=== PATIENT | female | born 1930 | race Caucasian/White ===

== ENCOUNTER 2018-12-09 19:09 | Emergency (ER) | payer MEDICARE ==
[2018-12-09] MEDS ORDERED: SODIUM CHLORIDE 0.9% 1,000 ML IV STA (19:57)
[2018-12-09] MEDS ORDERED: ACETAMINOPHEN TAB 325 MG TAB PO STA (20:02)
--- NOTE | 2018-12-09 20:06 | ED ---
General Adult HPI - General Source: family, RN notes reviewed Mode of arrival: ambulatory Limitations: no limitations <Sarthak Ying - Last Filed: 12/13/18 10:28> <Galdino Marte - Last Filed: 12/18/18 06:58> - General Chief complaint: Weakness Stated complaint: Weakness/fell Time Seen by Provider: 12/09/18 19:25 - History of Present Illness Initial comments: This is an 88-year-old female who presents to the emergency department complaining of generalized weakness. Patient herself does not complain of this but family has noted that she is unable to get up and around and today she slipped off the toilet and could not get up. According to family she did not herself according to the patient she did not herself. Patient denies any pain. Patient denies any headache patient denies numbness weakness per patient denies any chest pain difficulty breathing shortest breath per patient denies any abdominal pain patient denies nausea vomiting diarrhea. Patient denies any dysuria hematuria urinary frequency. Patient has no complaint whatsoever however family insists that she is weaker and is having difficulty even getting off the couch. Family also has noted lately she is not eating or drinking normally (Sarthak Ying) - Related Data Home Medications Medication Instructions Recorded Confirmed ALPRAZolam [Xanax] 0.25 mg PO BID 12/09/18 12/11/18 Donepezil [Aricept] 10 mg PO HS 12/09/18 12/11/18 Omeprazole 20 mg PO DAILY 12/09/18 12/11/18 amLODIPine [Norvasc] 5 mg PO DAILY 12/09/18 12/11/18 Levofloxacin [Levaquin] 500 mg PO DAILY 12/11/18 12/11/18 Previous Rx's Medication Instructions Recorded Levofloxacin [Levaquin] 500 mg PO DAILY 3 Days #3 tab 12/15/18 Acetaminophen Tab [Tylenol] 650 mg PO Q6HR PRN tab 12/17/18 Pantoprazole [Protonix] 40 mg PO AC-[id number] #14 tablet. 12/17/18 Allergies Allergy/AdvReac Type Severity Reaction Status Date / Time Sulfa (Sulfonamide Allergy Unknown Verified 12/11/18 11:03 Antibiotics) Review of Systems ROS Other: All systems not noted in ROS Statement are negative. <Fabio Yingophe - Last Filed: 12/13/18 10:28> ROS Other: All systems not noted in ROS Statement are negative. <RosannaGaldino - Last Filed: 12/18/18 06:58> ROS Statement: Those systems with pertinent positive or pertinent negative responses have been documented in the HPI. Past Medical History Past Medical History: GERD/Reflux, Hypertension History of Any Multi-Drug Resistant Organisms: None Reported Additional Past Surgical History / Comment(s): Abdominal sx Past Psychological History: No Psychological Hx Reported Smoking Status: Never smoker Past Alcohol Use History: None Reported Past Drug Use History: None Reported <YingSarthak - Last Filed: 12/13/18 10:28> General Exam Limitations: no limitations <YingBobbye - Last Filed: 12/13/18 10:28> <Galdino Marte - Last Filed: 12/18/18 06:58> - General Exam Comments Initial Comments: GENERAL: Patient is well-developed and well-nourished. Patient is nontoxic and well- hydrated and is in no acute distress. ENT: Neck is soft and supple. No significant lymphadenopathy is noted. Oropharynx is clear. Moist mucous membranes. Neck has full range of motion without eliciting any pain. EYES: The sclera were anicteric and conjunctiva were pink and moist. Extraocular movements were intact and pupils were equal round and reactive to light. Eyelids were unremarkable. PULMONARY: Unlabored respirations. Good breath sounds bilaterally. CARDIOVASCULAR: There is a regular rate and rhythm without any murmurs gallops or rubs. ABDOMEN: Soft and nontender with normal bowel sounds. SKIN: Skin is clear with no lesions or rashes and otherwise unremarkable. NEUROLOGIC: Patient is alert and oriented 2. Cranial nerves II through XII are grossly intact. Motor and sensory are also intact. Normal speech, volume and content. Symmetrical smile. MUSCULOSKELETAL: Normal extremities with adequate strength and full range of motion. LYMPHATICS: No significant lymphadenopathy is noted PSYCHIATRIC: Normal psychiatric evaluation. (Sarthak Ying) Vital Signs 12/09/18 12/09/18 12/09/18 19:24 20:30 21:00 Temperature 100.3 F H 98.6 F Pulse Rate 105 H 63 74 Respiratory 20 16 22 Rate Blood Pressure 130/71 122/47 111/64 O2 Sat by Pulse 92 L 93 L 96 Oximetry 12/09/18 21:10 Temperature 98.6 F Pulse Rate Respiratory Rate Blood Pressure O2 Sat by Pulse 96 Oximetry Medical Decision Making - Lab Data Result diagrams: 12/09/18 20:15 12/09/18 20:15 <Sarthak Ying - Last Filed: 12/13/18 10:28> - Lab Data Result diagrams: 12/09/18 20:15 12/09/18 20:15 <Galdino Marte - Last Filed: 12/18/18 06:58> - Medical Decision Making EKG shows sinus rhythm with occasional PVC at 74 bpm [place] interval is 132 QRS is 80 QT interval 370 QTC is 410. EKG shows no ST segment elevation or depression. Dr. Cuenca will be taking care of this patient starting at 9 PM (Sarthak Ying) Receive this patient has a sign out, pending the return of her lab studies. She does have urinary tract infection. I discussed with the patient and family the results. I then let them discuss things as family was pressure in patient stay but patient stated she wanted to try course of outpatient antibiotics. After discussion, patient still feels she wants try outpatient treatment. Discussed appropriate follow-up and return parameters. (Galdino Marte) - Lab Data Lab Results 12/09/18 12/09/18 12/09/18 Range/Units 20:15 20:15 20:15 WBC 12.3 H (3.8-10.6) k/uL RBC 4.45 (3.80-5.40) m/uL Hgb 13.4 (11.4-16.0) gm/dL Hct 40.7 (34.0-46.0) % MCV 91.4 (80.0-100.0) fL MCH 30.2 (25.0-35.0) pg MCHC 33.0 (31.0-37.0) g/dL RDW 13.1 (11.5-15.5) % Plt Count 272 (150-450) k/uL Neutrophils % 86 % Lymphocytes % 7 % Monocytes % 5 % Eosinophils % 1 % Basophils % 0 % Neutrophils # 10.5 H (1.3-7.7) k/uL Lymphocytes # 0.8 L (1.0-4.8) k/uL Monocytes # 0.6 (0-1.0) k/uL Eosinophils # 0.1 (0-0.7) k/uL Basophils # 0.0 (0-0.2) k/uL PT (9.0-12.0) sec INR (<1.2) APTT (22.0-30.0) sec Sodium 137 (137-145) mmol/L Potassium 4.4 (3.5-5.1) mmol/L Chloride 104 (98-107) mmol/L Carbon Dioxide 23 (22-30) mmol/L Anion Gap 10 mmol/L BUN 34 H (7-17) mg/dL Creatinine 1.50 H (0.52-1.04) mg/dL Est GFR (CKD-EPI)AfAm 36 (>60 ml/min/1.73 sqM) Est GFR (CKD-EPI)NonAf 31 (>60 ml/min/1.73 sqM) Glucose 136 H (74-99) mg/dL Plasma Lactic Acid Martin (0.7-2.0) mmol/L Calcium 9.0 (8.4-10.2) mg/dL Magnesium 2.2 (1.6-2.3) mg/dL Total Bilirubin 0.6 (0.2-1.3) mg/dL AST 22 (14-36) U/L ALT 17 (9-52) U/L Alkaline Phosphatase 65 (38-126) U/L Total Creatine Kinase 54 (30-135) U/L CK-MB (CK-2) 0.8 (0.0-2.4) ng/mL CK-MB (CK-2) Rel Index 1.5 Troponin I 0.030 (0.000-0.034) ng/mL Total Protein 7.7 (6.3-8.2) g/dL Albumin 3.8 (3.5-5.0) g/dL Urine Color Urine Appearance (Clear) Urine pH (5.0-8.0) Ur Specific [place] (1.001-1.035) Urine Protein (Negative) Urine Glucose (UA) (Negative) Urine Ketones (Negative) Urine Blood (Negative) Urine Nitrite (Negative) Urine Bilirubin (Negative) Urine Urobilinogen (<2.0) mg/dL Ur Leukocyte Esterase (Negative) Urine RBC (0-5) /hpf Urine WBC (0-5) /hpf Urine WBC Clumps (None) /hpf Ur Squamous Epith Cells (0-4) /hpf Amorphous Sediment (None) /hpf Urine Bacteria (None) /hpf Urine Mucus (None) /hpf 12/09/18 12/09/18 12/09/18 Range/Units 20:15 20:15 22:57 WBC (3.8-10.6) k/uL RBC (3.80-5.40) m/uL Hgb (11.4-16.0) gm/dL Hct (34.0-46.0) % MCV (80.0-100.0) fL MCH (25.0-35.0) pg MCHC (31.0-37.0) g/dL RDW (11.5-15.5) % Plt Count (150-450) k/uL Neutrophils % % Lymphocytes % % Monocytes % % Eosinophils % % Basophils % % Neutrophils # (1.3-7.7) k/uL Lymphocytes # (1.0-4.8) k/uL Monocytes # (0-1.0) k/uL Eosinophils # (0-0.7) k/uL Basophils # (0-0.2) k/uL PT 10.0 (9.0-12.0) sec INR 0.9 (<1.2) APTT 24.9 (22.0-30.0) sec Sodium (137-145) mmol/L Potassium (3.5-5.1) mmol/L Chloride (98-107) mmol/L Carbon Dioxide (22-30) mmol/L Anion Gap mmol/L BUN (7-17) mg/dL Creatinine (0.52-1.04) mg/dL Est GFR (CKD-EPI)AfAm (>60 ml/min/1.73 sqM) Est GFR (CKD-EPI)NonAf (>60 ml/min/1.73 sqM) Glucose (74-99) mg/dL Plasma Lactic Acid Martin 1.2 (0.7-2.0) mmol/L Calcium (8.4-10.2) mg/dL Magnesium (1.6-2.3) mg/dL Total Bilirubin (0.2-1.3) mg/dL AST (14-36) U/L ALT (9-52) U/L Alkaline Phosphatase (38-126) U/L Total Creatine Kinase (30-135) U/L CK-MB (CK-2) (0.0-2.4) ng/mL CK-MB (CK-2) Rel Index Troponin I (0.000-0.034) ng/mL Total Protein (6.3-8.2) g/dL Albumin (3.5-5.0) g/dL Urine Color Yellow Urine Appearance Turbid H (Clear) Urine pH 6.0 (5.0-8.0) Ur Specific [place] 1.015 (1.001-1.035) Urine Protein 2+ H (Negative) Urine Glucose (UA) Negative (Negative) Urine Ketones 1+ H (Negative) Urine Blood Small H (Negative) Urine Nitrite Negative (Negative) Urine Bilirubin Negative (Negative) Urine Urobilinogen 2.0 (<2.0) mg/dL Ur Leukocyte Esterase Large H (Negative) Urine RBC 15 H (0-5) /hpf Urine WBC >182 H (0-5) /hpf Urine WBC Clumps Few H (None) /hpf Ur Squamous Epith Cells 4 (0-4) /hpf Amorphous Sediment Occasional H (None) /hpf Urine Bacteria Many H (None) /hpf Urine Mucus Occasional H (None) /hpf Disposition <Sarthak Ying - Last Filed: 12/13/18 10:28> Is patient prescribed a controlled substance at d/c from ED?: No <Galdino Marte - Last Filed: 12/18/18 06:58> Clinical Impression: Urinary tract infection Disposition: HOME SELF-CARE Condition: Fair Referrals: Jose Lynch MD [Primary Care Provider] - 1-2 days
[2018-12-09 20:30] VITALS: TEMP 98.6
[2018-12-09 20:52] LABS: Basophils % (A) 0 %; Eosinophils # (A) 0.1 k/uL (0-0.7); Eosinophils % (A) 1 %; HCT 40.7 % (34.0-46.0); HGB 13.4 gm/dL (11.4-16.0); Lymphocytes # (A) 0.8 k/uL (1.0-4.8); Lymphocytes % (A) 7 %; MCH 30.2 pg (25.0-35.0); MCV 91.4 fL (80.0-100.0); Mean Platelet Volume 7.6; Monocytes # (A) 0.6 k/uL (0-1.0); Monocytes % (A) 5 %; Neutrophils # (A) 10.5 k/uL (1.3-7.7); Neutrophils % (A) 86 %; Platelet Count 272 k/uL (150-450); RBC 4.45 m/uL (3.80-5.40); RDW 13.1 % (11.5-15.5); WBC 12.3 k/uL (3.8-10.6)
--- NOTE | 2018-12-09 20:55 | XR ---
EXAMINATION: XR chest 2V DATE AND TIME: 12/09/2018 8:49 PM CLINICAL INDICATION: PHH; Weakness TECHNIQUE: Departmental protocol COMPARISON: None FINDINGS: The lungs appear to be clear. The pleural spaces are negative. The cardiac silhouette is mildly enlarged. The skeletal structures and soft tissues are negative for acute findings. IMPRESSION: NO ACUTE PROCESS.
[2018-12-09 20:59] LABS: INR 0.9 (<1.2); Partial Thromboplastin Time 24.9 sec (22.0-30.0)
[2018-12-09 21:05] LABS: Albumin 3.8 g/dL (3.5-5.0); Magnesium 2.2 mg/dL (1.6-2.3); Potassium 4.4 mmol/L (3.5-5.1); Total Bilirubin 0.6 mg/dL (0.2-1.3); Total Protein 7.7 g/dL (6.3-8.2)
[2018-12-09 21:12] VITALS: BP 111/64; PULSE 74; RESP 22
[2018-12-09 21:18] LABS: Creatine Kinase MB 0.8 ng/mL (0.0-2.4); Troponin I 0.03 ng/mL (0.000-0.034)
[2018-12-09 23:12] LABS: Amorphous Sediment,Urine Occasional /hpf; Appearance,Urine Turbid (Clear); Bacteria,Urine Many /hpf; Bilirubin,Urine Negative (Negative); Blood,Urine Small (Negative); Color,Urine Yellow; Glucose,Urine (UA) Negative (Negative); Ketones,Urine 1+ (Negative); Leukocyte Esterase,Urine Large (Negative); Mucus,Urine Occasional /hpf; Nitrite,Urine Negative (Negative); Protein,Urine 2+ (Negative); RBC,Urine 15 /hpf (0-5); Specific Gravity,Urine 1.015 (1.001-1.035); Squamous Epithelial Cell,Urine 4 /hpf (0-4); WBC,Urine >182 /hpf (0-5)
[2018-12-09] MEDS ORDERED: LEVOFLOXACIN 750 MG TAB ONE (23:55)
== END 2018-12-10 01:40 | disposition home or self-care (01) ==
LOC: EC 19:09
DX: N39.0 Urinary tract infection, site not specified (principal); K21.9 Gastro-esophageal reflux disease without esophagitis; I10 Essential (primary) hypertension; Z79.899 Other long term (current) drug therapy; Z88.2 Allergy status to sulfonamides
CPT/HCPCS: 36415; 71046; 80053; 81001; 82550; 82553; 83605; 83735; 84484; 85025; 85610; 85730; 87040; 87077; 87186; 93005; 96360; 99285

== ENCOUNTER 2018-12-11 10:45 | Inpatient (IN) | payer MEDICARE ==
--- NOTE | 2018-12-11 11:04 | ED ---
General Adult HPI - General Chief complaint: Recheck/Abnormal Lab/Rx Stated complaint: sent by request Time Seen by Provider: 12/11/18 10:51 Source: patient, RN notes reviewed, old records reviewed Mode of arrival: wheelchair Limitations: no limitations - History of Present Illness Initial comments: this Patient is a pleasant 88-year-old female with a history of dementia presents emergency department today with positive blood culture. Patient was in the emergency department 2 days ago for generalized weakness and frequent falls. Labwork was obtained at that time and she was determined to have a urinary tract infection. She has been on oral antibiotics at that time. Patient was called by her primary care physician and informed of the positive blood culture. Patient blood culture did grow gram-negative rods. She was sent in for IV antibiotics. She reports that she's been doing otherwise well. Family reports that she's had increasing shortness of breath with exertion as well as a poor appetite. Patient has had no further falls since her first emergency visit. - Related Data Home Medications Medication Instructions Recorded Confirmed ALPRAZolam [Xanax] 0.25 mg PO BID 12/09/18 12/11/18 Donepezil [Aricept] 10 mg PO HS 12/09/18 12/11/18 Losartan Potassium 50 mg PO DAILY 12/09/18 12/11/18 Omeprazole 20 mg PO DAILY 12/09/18 12/11/18 amLODIPine [Norvasc] 5 mg PO DAILY 12/09/18 12/11/18 Levofloxacin [Levaquin] 500 mg PO DAILY 12/11/18 12/11/18 Allergies Allergy/AdvReac Type Severity Reaction Status Date / Time Sulfa (Sulfonamide Allergy Unknown Verified 12/11/18 11:03 Antibiotics) Review of Systems ROS Statement: Those systems with pertinent positive or pertinent negative responses have been documented in the HPI. ROS Other: All systems not noted in ROS Statement are negative. Past Medical History Past Medical History: Dementia, GERD/Reflux, Hypertension History of Any Multi-Drug Resistant Organisms: None Reported Additional Past Surgical History / Comment(s): Abdominal sx Past Psychological History: No Psychological Hx Reported Smoking Status: Never smoker Past Alcohol Use History: None Reported Past Drug Use History: None Reported General Exam - General Exam Comments Initial Comments: this is a pleasantly demented 88-year-old female. Patient appears in no acute distress. Limitations: no limitations General appearance: alert, in no apparent distress Head exam: Present: atraumatic, normocephalic, normal inspection Eye exam: Present: normal appearance, PERRL, EOMI. Absent: scleral icterus, conjunctival injection, periorbital swelling ENT exam: Present: normal exam, mucous membranes moist Neck exam: Present: normal inspection. Absent: tenderness, meningismus, lymphadenopathy Respiratory exam: Present: normal lung sounds bilaterally. Absent: respiratory distress, wheezes, rales, rhonchi, stridor Cardiovascular Exam: Present: regular rate, normal rhythm, normal heart sounds. Absent: systolic murmur, diastolic murmur, rubs, gallop, clicks GI/Abdominal exam: Present: soft, normal bowel sounds. Absent: distended, tenderness, guarding, rebound, rigid Extremities exam: Present: normal inspection, full ROM, normal capillary refill. Absent: tenderness, pedal edema, joint swelling, calf tenderness Back exam: Present: normal inspection, other (significant kyphosis ) Neurological exam: Present: alert, oriented X3, CN II-XII intact Psychiatric exam: Present: normal affect, normal mood Skin exam: Present: warm, dry, intact, normal color. Absent: rash Course Vital Signs 12/11/18 10:47 Temperature 97.5 F L Pulse Rate 95 Respiratory 16 Rate Blood Pressure 134/74 O2 Sat by Pulse 97 Oximetry EKG Findings - EKG Comments: EKG Findings:: EKG shows sinus rhythm with PACs with aberrant conduction. Left axis deviation. Minimal voltage Critcher for LVH. May be normal variant. Abnormal EKG noted. Ventricular rate of 74 bpm. TX interval is 144 ms. QT QTc is 414/459 ms. Medical Decision Making - Medical Decision Making Patient is an 88-year-old female who presents returned today with treatment for positive blood culture. She was seen in emergency department 2 days ago. That time had a positive gram-negative fred blood culture. Likely from UTI. She was discharged on by mouth Levaquin. Patient was sent in by her PCP for IV antibiotics due to a positive blood culture. She states she has no actual physical complaints at this time. Her lab work was reviewed today. White blood cell count is improved from her labs 2 days ago. Vital signs are stable. I did start the Patient on IV Levaquin and Vanco. Sensitivity is not completed for the cultures at this time. Patient at this time will be admitted for continued antibiotics consult infectious disease. Dr. Ying discussed case with [facility]. - Lab Data Result diagrams: 12/11/18 11:34 12/11/18 11:34 Lab Results 12/11/18 12/11/18 12/11/18 Range/Units 11:34 11:34 11:34 WBC 6.3 (3.8-10.6) k/uL RBC 4.18 (3.80-5.40) m/uL Hgb 12.9 (11.4-16.0) gm/dL Hct 38.0 (34.0-46.0) % MCV 91.1 (80.0-100.0) fL MCH 30.9 (25.0-35.0) pg MCHC 33.9 (31.0-37.0) g/dL RDW 13.1 (11.5-15.5) % Plt Count 295 (150-450) k/uL Neutrophils % 71 % Lymphocytes % 16 % Monocytes % 7 % Eosinophils % 1 % Basophils % 0 % Neutrophils # 4.5 (1.3-7.7) k/uL Lymphocytes # 1.0 (1.0-4.8) k/uL Monocytes # 0.5 (0-1.0) k/uL Eosinophils # 0.1 (0-0.7) k/uL Basophils # 0.0 (0-0.2) k/uL PT (9.0-12.0) sec INR (<1.2) APTT (22.0-30.0) sec Sodium 139 (137-145) mmol/L Potassium 3.8 (3.5-5.1) mmol/L Chloride 106 (98-107) mmol/L Carbon Dioxide 25 (22-30) mmol/L Anion Gap 8 mmol/L BUN 29 H (7-17) mg/dL Creatinine 0.96 (0.52-1.04) mg/dL Est GFR (CKD-EPI)AfAm 62 (>60 ml/min/1.73 sqM) Est GFR (CKD-EPI)NonAf 53 (>60 ml/min/1.73 sqM) Glucose 102 H (74-99) mg/dL Plasma Lactic Acid Martin 1.4 (0.7-2.0) mmol/L Calcium 8.7 (8.4-10.2) mg/dL Total Bilirubin 0.4 (0.2-1.3) mg/dL AST 36 (14-36) U/L ALT 21 (9-52) U/L Alkaline Phosphatase 64 (38-126) U/L Troponin I (0.000-0.034) ng/mL Total Protein 7.1 (6.3-8.2) g/dL Albumin 3.5 (3.5-5.0) g/dL 12/11/18 12/11/18 Range/Units 11:34 11:34 WBC (3.8-10.6) k/uL RBC (3.80-5.40) m/uL Hgb (11.4-16.0) gm/dL Hct (34.0-46.0) % MCV (80.0-100.0) fL MCH (25.0-35.0) pg MCHC (31.0-37.0) g/dL RDW (11.5-15.5) % Plt Count (150-450) k/uL Neutrophils % % Lymphocytes % % Monocytes % % Eosinophils % % Basophils % % Neutrophils # (1.3-7.7) k/uL Lymphocytes # (1.0-4.8) k/uL Monocytes # (0-1.0) k/uL Eosinophils # (0-0.7) k/uL Basophils # (0-0.2) k/uL PT 10.1 (9.0-12.0) sec INR 0.9 (<1.2) APTT 25.0 (22.0-30.0) sec Sodium (137-145) mmol/L Potassium (3.5-5.1) mmol/L Chloride (98-107) mmol/L Carbon Dioxide (22-30) mmol/L Anion Gap mmol/L BUN (7-17) mg/dL Creatinine (0.52-1.04) mg/dL Est GFR (CKD-EPI)AfAm (>60 ml/min/1.73 sqM) Est GFR (CKD-EPI)NonAf (>60 ml/min/1.73 sqM) Glucose (74-99) mg/dL Plasma Lactic Acid Martin (0.7-2.0) mmol/L Calcium (8.4-10.2) mg/dL Total Bilirubin (0.2-1.3) mg/dL AST (14-36) U/L ALT (9-52) U/L Alkaline Phosphatase (38-126) U/L Troponin I 0.019 (0.000-0.034) ng/mL Total Protein (6.3-8.2) g/dL Albumin (3.5-5.0) g/dL - Radiology Data Radiology results: report reviewed Chest x-ray shows no acute cardio from a process. Kyphosis present. Aorta sounds. Right hemidiaphragm is elevated. Heart size may be accentuated prior dictation. Surgical clips of the left breast. Question will nodular density in the substernal location that is not seen on prior exam. Disposition Clinical Impression: Positive blood culture, History of UTI Disposition: ADMITTED IP TO THIS HOSP Condition: Stable Is patient prescribed a controlled substance at d/c from ED?: No Referrals: Jose Lynch MD [Primary Care Provider] - 1-2 days Time of Disposition: 13:17
[2018-12-11] MEDS ORDERED: VANCOMYCIN IV PER PHARMACY 1 EACH MISC MISCELLANE PRN (11:07)
[2018-12-11] MEDS ORDERED: LEVOFLOXACIN 750MG-D5W PMX 750 MG in DEXTROSE/WATER 1 150ML.BAG IVPB STA (11:07)
[2018-12-11] MEDS ORDERED: VANCOMYCIN 1,000 MG in SODIUM CHLORIDE 0.9% 250 ML IVPB ONE (11:30)
[2018-12-11] MEDS: SODIUM CHLORIDE 0.9% 500 ML 500 ML IV SCH ×2 (11:40→11:41)
[2018-12-11] MEDS: SODIUM CHLORIDE 0.9% 1,000 ML IV SCH ×2 (11:41→21:07)
[2018-12-11 12:07] LABS: Basophils % (A) 0 %; Eosinophils # (A) 0.1 k/uL (0-0.7); Eosinophils % (A) 1 %; HGB 12.9 gm/dL (11.4-16.0); Lymphocytes % (A) 16 %; MCH 30.9 pg (25.0-35.0); MCHC 33.9 g/dL (31.0-37.0); MCV 91.1 fL (80.0-100.0); Mean Platelet Volume 7.5; Monocytes # (A) 0.5 k/uL (0-1.0); Monocytes % (A) 7 %; Neutrophils # (A) 4.5 k/uL (1.3-7.7); Neutrophils % (A) 71 %; Platelet Count 295 k/uL (150-450); RBC 4.18 m/uL (3.80-5.40); RDW 13.1 % (11.5-15.5); WBC 6.3 k/uL (3.8-10.6)
--- NOTE | 2018-12-11 12:17 | XR ---
EXAMINATION TYPE: XR chest 2V DATE OF EXAM: 12/11/2018 COMPARISON: Prior chest x-ray 12/09/2018 HISTORY: Cough, flu symptoms, pain TECHNIQUE: Frontal and lateral views of the chest are obtained. FINDINGS: Patient is rotated. No evident airspace disease, pneumothorax, or pleural effusion. There is a kyphosis present. Aorta is dense. Right hemidiaphragm is elevated. Heart size may be accentuated by rotation. Surgical clips may be within the left breast. Questionable nodular density in the subst ernal location is not seen on prior exam. There is an underlying kyphosis. IMPRESSION: No acute cardiopulmonary process. Additional findings above. Follow-up as indicated.
[2018-12-11 12:23] LABS: Albumin 3.5 g/dL (3.5-5.0); Calcium 8.7 mg/dL (8.4-10.2); Potassium 3.8 mmol/L (3.5-5.1); Total Bilirubin 0.4 mg/dL (0.2-1.3); Total Protein 7.1 g/dL (6.3-8.2)
[2018-12-11 12:35] LABS: INR 0.9 (<1.2); Prothrombin Time 10.1 sec (9.0-12.0)
[2018-12-11] MEDS ORDERED: IBUPROFEN 400 MG TAB PO PRN (13:18)
[2018-12-11] MEDS ORDERED: NALOXONE 0.4 MG/ML 1 ML VIAL IV PRN (13:18)
[2018-12-11] MEDS ORDERED: ONDANSETRON 4 MG/2 ML VIAL IVP PRN (13:18)
[2018-12-11] MEDS ORDERED: Acetaminophen-Codeine 300-30mg TAB PO PRN (13:18)
[2018-12-11] MEDS ORDERED: oxyCODONE-APAP 5-325MG 1 EACH TAB PO PRN (13:18)
[2018-12-11 14:04] LABS: Appearance,Urine Cloudy (Clear); Bacteria,Urine Rare /hpf; Bilirubin,Urine Negative (Negative); Blood,Urine Trace (Negative); Color,Urine Yellow; Glucose,Urine (UA) Negative (Negative); Ketones,Urine Negative (Negative); Leukocyte Esterase,Urine Large (Negative); Nitrite,Urine Negative (Negative); Protein,Urine Trace (Negative); RBC,Urine 3 /hpf (0-5); Specific Gravity,Urine 1.008 (1.001-1.035); Squamous Epithelial Cell,Urine <1 /hpf (0-4); Urobilinogen,Urine <2.0 mg/dL (<2.0); WBC,Urine 177 /hpf (0-5)
--- NOTE | 2018-12-11 22:24 | P.HPIM ---
History of Present Illness H&P Date: 12/11/18 Chief Complaint: Positive blood cultures Patient is a 88-year-old female with a known history of dementia, GERD, hypertension was called back to the hospital due to positive blood cultures. Patient was in the emergency department 2 days ago for generalized weakness and frequent falls. Labwork was obtained at that time and she was determined to have a urinary tract infection. She has been on oral antibiotics at that time. Patient was called by her primary care physician and informed of the positive blood culture. Patient blood culture did grow gram-negative rods. She was sent in for IV antibiotics. She reports that she's been doing otherwise well. Family reports that she's had increasing shortness of breath with exertion as well as a poor appetite. Patient has had no further falls since her first emergency visit. Blood cultures grew E. coli. Patient was given a dose of Levaquin while in the ER. Patient otherwise denied any complaints of cough or sputum production. No fever no chills. No nausea vomiting or abdominal pain. No diarrhea. Chest x-ray showed no acute cardio pulmonary process. Chronic changes. EKG showed sinus sinus rhythm and PACs. WBC 12.3---6.3 Review of Systems Constitutional: Patient denies any fever or chills . No generalized weakness or weight loss. Abdomen: Patient denied nausea vomiting and diarrhea and abdominal pain. Cardiovascular: Patient denies any chest pain or short of breath no palpitations. Respiratory: patient denied any cough is from production. No shortness of breath Complete review of systems could not be obtained from the patient. Past Medical History Past Medical History: Dementia, GERD/Reflux, Hypertension Additional Past Medical History / Comment(s): falls History of Any Multi-Drug Resistant Organisms: None Reported Additional Past Surgical History / Comment(s): pt poor historian and son that was with her stated that the only sx he know of was abd sx either on bladder or kidney? and lasik eye sx Past Anesthesia/Blood Transfusion Reactions: No Reported Reaction Additional Past Anesthesia/Blood Transfusion Reaction / Comment(s): never had a blood transfusion Smoking Status: Never smoker - Past Family History Father Additional Family Medical History / Comment(s): in his 60's from post op infection Mother Family Medical History: Cancer Additional Family Medical History / Comment(s): colon cancer. " from old age " Medications and Allergies Home Medications Medication Instructions Recorded Confirmed Type ALPRAZolam [Xanax] 0.25 mg PO BID 12/09/18 12/11/18 History Donepezil [Aricept] 10 mg PO HS 12/09/18 12/11/18 History Losartan Potassium 50 mg PO DAILY 12/09/18 12/11/18 History Omeprazole 20 mg PO DAILY 12/09/18 12/11/18 History amLODIPine [Norvasc] 5 mg PO DAILY 12/09/18 12/11/18 History Levofloxacin [Levaquin] 500 mg PO DAILY 12/11/18 12/11/18 History Allergies Allergy/AdvReac Type Severity Reaction Status Date / Time Sulfa (Sulfonamide Allergy Unknown Verified 12/11/18 11:03 Antibiotics) Physical Exam Vitals: Vital Signs Temp Pulse Pulse Resp BP BP Pulse Ox 12/11/18 20:22 97.9 F 78 18 116/63 96 12/11/18 16:29 97.4 F L 79 18 134/64 91 L 12/11/18 15:44 97.8 F 86 18 124/62 95 12/11/18 13:22 97.7 F 82 16 116/61 95 12/11/18 10:47 97.5 F L 95 16 134/74 97 Intake and Output 12/11/18 12/11/18 12/11/18 06:59 14:59 22:59 Other: Voiding Method Toilet # Voids 1 # Bowel Movements 1 Weight 56.699 kg PHYSICAL EXAMINATION: Patient is lying in the bed comfortably, no acute distress, awake alert and oriented.. HEENT: Normocephalic. Neck is supple. Pupils reactive. Nostrils clear. Oral cavity is moist. Ears reveal no drainage. Neck reveals no JVD, carotid bruits, or thyromegaly. CHEST EXAMINATION: Trachea is central. Symmetrical expansion. Lung strickland clear to auscultation and percussion. CARDIAC: Normal S1, S2 with no gallops. No murmurs ABDOMEN: Soft. Bowel sounds normal. No organomegaly. No abdominal bruits. Extremities: reveal no edema. No clubbing or cyanosis Neurologically awake, alert, oriented x2-3 with well-coordinated movements. Able to move all extremities. Patient does have underlying dementia. Skin: No rash or skin lesions. Psychiatric: Coperative. Could not patient is completely. Musculoskeletal: No joint swelling or deformity. Normal range of motion. Results CBC & Chem 7: 12/11/18 11:34 12/11/18 11:34 Labs: Abnormal Lab Results - Last 24 Hours (Table) 12/11/18 12/11/18 Range/Units 11:34 12:45 BUN 29 H (7-17) mg/dL Glucose 102 H (74-99) mg/dL Urine Appearance Cloudy H (Clear) Urine Protein Trace H (Negative) Urine Blood Trace H (Negative) Ur Leukocyte Esterase Large H (Negative) Urine WBC 177 H (0-5) /hpf Urine Bacteria Rare H (None) /hpf Microbiology - Last 24 Hours (Table) 12/11/18 12:45 Urine Culture - Preliminary Urine,Voided Thrombosis Risk Factor Assmnt - Choose All That Apply Any of the Below Risk Factors Present?: Yes Each Factor Represents 1 point: Obesity (BMI >25) Other Risk Factors: Yes Each Risk Factor Represents 3 Points: Age 75 years or older Other congenital or acquired thrombophilia - If yes, enter type in comment: No Thrombosis Risk Factor Assessment Total Risk Factor Score: 4 Thrombosis Risk Factor Assessment Level: Moderate Risk Assessment and Plan Assessment: E. coli sepsis/septicemia. source possibly UTI Generalized weakness Dementia Hypertension DVT prophylaxis Plan: Patient will be continued on antibiotics in the form of ceftriaxone. Patient was given a dose of Levaquin while in the ER. Repeat blood culture and urine culture was ordered. ID was consulted. IV hydration. Further recommendations based on the clinical course. Time with Patient: Greater than 30
[2018-12-12] MEDS: HEPARIN SODIUM,PORCINE 5,000 UNIT/ML 1 ML VIAL SQ SCH ×4 (00:20→23:27)
[2018-12-12] MEDS ORDERED: PANTOPRAZOLE 40 MG/10 ML VIAL IV SCH (09:00)
[2018-12-12] MEDS: SODIUM CHLORIDE 0.9% 1,000 ML IV SCH ×2 (09:09→17:05)
[2018-12-12] MEDS ORDERED: VANCOMYCIN 1,000 MG in SODIUM CHLORIDE 0.9% 250 ML IVPB SCH (12:00)
--- NOTE | 2018-12-12 14:01 | P.CONS ---
History of Present Illness - Reason for Consult Consult date: 12/12/18 Positive blood culture, gram-negative rods - History of Present Illness This is an 88-year-old female patient who presented to the [facility] emergency center on December 09 with complaints of generalized weakness, unable to get up and around and she slipped off the toilet and could not get up. She was having difficulty getting off the couch and family noted that she is not eating or drinking normally. Temperature max 100.3, pulse 105, white count 12.3, BUN 34 and creatinine 1.5. Urinalysis was turbid, leukoesterase large, RBCs 15, WBC is greater than 182, bacteria many. Patient was discharged home on Levaquin and the patient received a call that she had a positive blood culture need to come back in the hospital and be admitted. Patient now has been afebrile, white count 6.3, BUN 29 creatinine 0.96. She received a dose of IV vancomycin was started on ceftriaxone and is status post 1 L of IV fluids. Chest x-ray showed no acute process. Patient was admitted to the [facility] floor. Repeat blood culture is status received. Urine culture was not obtained on December 09 ER visit. Urine culture for this admission is in progress. Patient denies any fever or chills, she states she is eating okay without any problems with her appetite. She denies any diarrhea. Patient states that she has ambulated in the hallway and that her weakness is improved. Patient states that she has had urinary tract infections in the past but not more than 2 in the last year. According to the patient's son, if patient needs IV antibiotics they [facility] or have antibiotics given in the office. Review of Systems All systems: negative Constitutional: Reports weakness, Denies chills, Denies fever Eyes: denies blurred vision, denies pain Ears, nose, mouth and throat: Denies dental pain, Denies dysphagia, Denies headache, Denies mouth pain, Denies sore throat, Denies vertigo Cardiovascular: Denies chest pain, Denies dyspnea on exertion, Denies edema, Denies leg edema, Denies lightheadedness, Denies shortness of breath, Denies syncope Respiratory: Denies cough, Denies cough with sputum, Denies dyspnea, Denies excessive sputum, Denies hemoptysis, Denies home oxygen, Denies wheezing Gastrointestinal: Denies abdominal pain, Denies diarrhea, Denies nausea, Denies vomiting Genitourinary: Reports dysuria (Has resolved), Denies hematuria Musculoskeletal: Denies myalgias Integumentary: Denies pruritus, Denies rash Neurological: Denies numbness, Denies weakness Psychiatric: Denies anxiety, Denies depression Endocrine: Denies fatigue, Denies weight change Past Medical History Past Medical History: Dementia, GERD/Reflux, Hypertension Additional Past Medical History / Comment(s): falls History of Any Multi-Drug Resistant Organisms: None Reported Additional Past Surgical History / Comment(s): pt poor historian and son that was with her stated that the only sx he know of was abd sx either on bladder or kidney? and lasik eye sx Past Anesthesia/Blood Transfusion Reactions: No Reported Reaction Additional Past Anesthesia/Blood Transfusion Reaction / Comm: never had a blood transfusion Smoking Status: Never smoker Additional Past Alcohol Use History / Comment(s): Patient is a lifelong nonsmoker, no marijuana or illicit drug use. No alcohol use. Patient lives at home with her . She has traveled about a year ago to the [place] area. - Past Family History Father Additional Family Medical History / Comment(s): in his 60's from post op infection Mother Family Medical History: Cancer Additional Family Medical History / Comment(s): colon cancer. " from old age " Medications and Allergies Home Medications Medication Instructions Recorded Confirmed Type ALPRAZolam [Xanax] 0.25 mg PO BID 12/09/18 12/11/18 History Donepezil [Aricept] 10 mg PO HS 12/09/18 12/11/18 History Losartan Potassium 50 mg PO DAILY 12/09/18 12/11/18 History Omeprazole 20 mg PO DAILY 12/09/18 12/11/18 History amLODIPine [Norvasc] 5 mg PO DAILY 12/09/18 12/11/18 History Levofloxacin [Levaquin] 500 mg PO DAILY 12/11/18 12/11/18 History Allergies Allergy/AdvReac Type Severity Reaction Status Date / Time Sulfa (Sulfonamide Allergy Unknown Verified 12/11/18 11:03 Antibiotics) Physical Exam Vitals: Vital Signs Temp Pulse Pulse Resp BP BP Pulse Ox 12/12/18 05:00 97.7 F 85 16 147/67 93 L 12/11/18 20:22 97.9 F 78 18 116/63 96 12/11/18 16:29 97.4 F L 79 18 134/64 91 L 12/11/18 15:44 97.8 F 86 18 124/62 95 12/11/18 13:22 97.7 F 82 16 116/61 95 12/11/18 10:47 97.5 F L 95 16 134/74 97 Intake and Output 12/11/18 12/12/18 12/12/18 22:59 06:59 14:59 Intake Total 520 840 Balance 520 840 Intake: Intake, IV Titration 400 600 Amount Sodium [place] 0.9% 1, 400 600 000 ml @ 75 mls/hr IV . [id number] [facility] Rx#:[id number] Oral 120 240 Other: Voiding Method Toilet Toilet Toilet # Voids 3 3 # Bowel Movements 1 Gen: This is an 88-year-old female. She is sitting in bed appears to be comfortable and in no acute distress. Patient is eating her breakfast with no signs of dysphagia. HEENT: Head is atraumatic, normocephalic. Pupils equal, round. Sclerae is anicteric. Conjunctiva pink. Mucous members of the mouth are moist. No thrush noted. No oropharyngeal erythema or edema. NECK: Supple. No JVD. No lymphadenopathy. No thyromegaly. LUNGS: Clear to auscultation. No wheezes or rhonchi. No intercostal retractions. HEART: Regular rate and rhythm. No murmur. ABDOMEN: Soft. Bowel sounds are present. No masses. No tenderness. No suprapubic tenderness. No CVA tenderness bilaterally. EXTREMITIES: No pedal edema. No calf tenderness. Dorsalis pedis is +2 bilaterally NEUROLOGICAL: Patient is awake, alert and oriented x3. Cranial nerves 2 through 12 are grossly intact. Results Results: Laboratory Results WBC 6.3 k/uL (3.8-10.6) 12/11/18 11:34 RBC 4.18 m/uL (3.80-5.40) 12/11/18 11:34 Hgb 12.9 gm/dL (11.4-16.0) 12/11/18 11:34 Hct 38.0 % (34.0-46.0) 12/11/18 11:34 MCV 91.1 fL (80.0-100.0) 12/11/18 11:34 MCH 30.9 pg (25.0-35.0) 12/11/18 11:34 MCHC 33.9 g/dL (31.0-37.0) 12/11/18 11:34 RDW 13.1 % (11.5-15.5) 12/11/18 11:34 Plt Count 295 k/uL (150-450) 12/11/18 11:34 Neutrophils % 71 % 12/11/18 11:34 Lymphocytes % 16 % 12/11/18 11:34 Monocytes % 7 % 12/11/18 11:34 Eosinophils % 1 % 12/11/18 11:34 Basophils % 0 % 12/11/18 11:34 Neutrophils # 4.5 k/uL (1.3-7.7) 12/11/18 11:34 Lymphocytes # 1.0 k/uL (1.0-4.8) 12/11/18 11:34 Monocytes # 0.5 k/uL (0-1.0) 12/11/18 11:34 Eosinophils # 0.1 k/uL (0-0.7) 12/11/18 11:34 Basophils # 0.0 k/uL (0-0.2) 12/11/18 11:34 PT 10.1 sec (9.0-12.0) 12/11/18 11:34 INR 0.9 (<1.2) 12/11/18 11:34 APTT 25.0 sec (22.0-30.0) 12/11/18 11:34 Sodium 139 mmol/L (137-145) 12/11/18 11:34 Potassium 3.8 mmol/L (3.5-5.1) 12/11/18 11:34 [place] 106 mmol/L (98-107) 12/11/18 11:34 Carbon Dioxide 25 mmol/L (22-30) 12/11/18 11:34 Anion Gap 8 mmol/L 12/11/18 11:34 BUN 29 mg/dL (7-17) H 12/11/18 11:34 Creatinine 0.96 mg/dL (0.52-1.04) 12/11/18 11:34 Est GFR (CKD-EPI)AfAm 62 (>60 ml/min/1.73 sqM) 12/11/18 11:34 Est GFR (CKD-EPI)NonAf 53 (>60 ml/min/1.73 sqM) 12/11/18 11:34 Glucose 102 mg/dL (74-99) H 12/11/18 11:34 Plasma Lactic Acid Martin 1.4 mmol/L (0.7-2.0) 12/11/18 11:34 Calcium 8.7 mg/dL (8.4-10.2) 12/11/18 11:34 Total Bilirubin 0.4 mg/dL (0.2-1.3) 12/11/18 11:34 AST 36 U/L (14-36) 12/11/18 11:34 ALT 21 U/L (9-52) 12/11/18 11:34 Alkaline Phosphatase 64 U/L (38-126) 12/11/18 11:34 Troponin I 0.019 ng/mL (0.000-0.034) 12/11/18 11:34 Total Protein 7.1 g/dL (6.3-8.2) 12/11/18 11:34 Albumin 3.5 g/dL (3.5-5.0) 12/11/18 11:34 Urine Color Yellow 12/11/18 12:45 Urine Appearance Cloudy (Clear) H 12/11/18 12:45 Urine pH 6.0 (5.0-8.0) 12/11/18 12:45 Ur Specific [place] 1.008 (1.001-1.035) 12/11/18 12:45 Urine Protein Trace (Negative) H 12/11/18 12:45 Urine Glucose (UA) Negative (Negative) 12/11/18 12:45 Urine Ketones Negative (Negative) 12/11/18 12:45 Urine Blood Trace (Negative) H 12/11/18 12:45 Urine Nitrite Negative (Negative) 12/11/18 12:45 Urine Bilirubin Negative (Negative) 12/11/18 12:45 Urine Urobilinogen <2.0 mg/dL (<2.0) 12/11/18 12:45 Ur Leukocyte Esterase Large (Negative) H 12/11/18 12:45 Urine RBC 3 /hpf (0-5) 12/11/18 12:45 Urine WBC 177 /hpf (0-5) H 12/11/18 12:45 Ur Squamous Epith Cells <1 /hpf (0-4) 12/11/18 12:45 Urine Bacteria Rare /hpf (None) H 12/11/18 12:45 CBC & Chem 7: 12/11/18 11:34 12/11/18 11:34 Labs: Abnormal Lab Results - Last 24 Hours (Table) 12/11/18 12/11/18 Range/Units 11:34 12:45 BUN 29 H (7-17) mg/dL Glucose 102 H (74-99) mg/dL Urine Appearance Cloudy H (Clear) Urine Protein Trace H (Negative) Urine Blood Trace H (Negative) Ur Leukocyte Esterase Large H (Negative) Urine WBC 177 H (0-5) /hpf Urine Bacteria Rare H (None) /hpf Microbiology - Last 24 Hours (Table) 12/11/18 12:45 Urine Culture - Preliminary Urine,Voided Assessment and Plan Plan: This is an 88-year-old female who presents to hospital with gram- negative bacteremia secondary to UTI. Patient is currently on Rocephin. Blood culture from December 09 ER visit is E. coli that is pansensitive. Repeat blood culture and a urine culture has been obtained on this admission. Patient is currently on Rocephin which will be continued. Family is requesting either ECF for IV antibiotics if needed or come into the office daily for antibiotics. Continue supportive care. Further recommendations as patient progresses. The above dictated assessment and findings were discussed with Dr. Leonard. The impression and plan of care have been directed as dictated. Mireya Summers nurse practitioner acting as scribe for Dr. Leonard.
--- NOTE | 2018-12-12 15:05 | US ---
EXAMINATION TYPE: US kidneys/renal and bladder DATE OF EXAM: 12/12/2018 COMPARISON: NONE CLINICAL HISTORY: hydronephrosis renal mass. EXAM MEASUREMENTS: Right Kidney: 10.5 x 3.8 x 4.1 cm Left Kidney: 9.7 x 4.1 x 4.2 cm Right Kidney: 2.0 x 1.2 x 1.7cm hypoechoic area lateral mid pole. This does not demonstrate through t ransmission and requires further evaluation as it is not entirely sonographically compatible with a c yst. Left Kidney: 0.2cm echogenic focus superior pole compatible with a nonobstructing calculus. Bladder: wnl Bilateral Jets seen: right jet not seen There is no evidence for hydronephrosis at this point in time. No nephrolithiasis is seen. No ariana s are identified. The urinary bladder is anechoic. Bilateral ureteral jets are seen. IMPRESSION: 1. No hydronephrosis of either kidney. 2. 2 cm right renal lesion that does not appear compatible with a simple cyst. Further characterizati on with three-phase enhanced CT abdomen is recommended. 3. 0.2 cm nonobstructing left renal calculus.
--- NOTE | 2018-12-12 21:52 | P.PN ---
Subjective Progress Note Date: 12/12/18 Principal diagnosis: Gram-negative bacilli/E. coli bacteremia Patient is a 88-year-old female with a known history of dementia, GERD, hypertension was called back to the hospital due to positive blood cultures. Patient was in the emergency department 2 days ago for generalized weakness and frequent falls. Labwork was obtained at that time and she was determined to have a urinary tract infection. She has been on oral antibiotics at that time. Patient was called by her primary care physician and informed of the positive blood culture. Patient blood culture did grow gram-negative rods. She was sent in for IV antibiotics. She reports that she's been doing otherwise well. Family reports that she's had increasing shortness of breath with exertion as well as a poor appetite. Patient has had no further falls since her first emergency visit. Blood cultures grew E. coli. Patient was given a dose of Levaquin while in the ER. Patient otherwise denied any complaints of cough or sputum production. No fever no chills. No nausea vomiting or abdominal pain. No diarrhea. Chest x-ray showed no acute cardio pulmonary process. Chronic changes. EKG showed sinus sinus rhythm and PACs. WBC 12.3---6.3 12/12/2018 Patient denied any complaints of chest pain or shortness of breath. No fever no chills. Repeat blood cultures have been negative as well as urine cultures. No nausea vomiting or abdominal pain. Otherwise patient is a poor historian due to underlying dementia. No other acute overnight issues. Current medications reviewed Objective - Vital Signs Vital signs: Vital Signs Temp 98.3 F 12/12/18 12:35 Pulse 85 12/12/18 12:35 Resp 16 12/12/18 12:35 BP 154/68 12/12/18 12:35 Pulse Ox 96 12/12/18 12:35 Intake & Output 12/12/18 12/12/18 12/13/18 06:59 18:59 06:59 Intake Total 1360 Balance 1360 Intake: Intake, IV Titration 1000 Amount Sodium [place] 0.9% 1, 1000 000 ml @ 75 mls/hr IV . [id number] [facility] Rx#:[id number] Oral 360 Other: Voiding Method Toilet Toilet # Voids 3 2 # Bowel Movements 1 1 - Exam PHYSICAL EXAMINATION: Patient is lying in the bed comfortably, no acute distress, awake alert and oriented.. HEENT: Normocephalic. Neck is supple. Pupils reactive. Nostrils clear. Oral cavity is moist. Ears reveal no drainage. Neck reveals no JVD, carotid bruits, or thyromegaly. CHEST EXAMINATION: Trachea is central. Symmetrical expansion. Lung strickland clear to auscultation and percussion. CARDIAC: Normal S1, S2 with no gallops. No murmurs ABDOMEN: Soft. Bowel sounds normal. No organomegaly. No abdominal bruits. Extremities: reveal no edema. No clubbing or cyanosis Neurologically awake, alert, oriented x2-3 with well-coordinated movements. Able to move all extremities. Patient does have underlying dementia. Skin: No rash or skin lesions. Psychiatric: Coperative. Could not patient is completely. Musculoskeletal: No joint swelling or deformity. Normal range of motion. - Labs CBC & Chem 7: 12/11/18 11:34 12/11/18 11:34 Labs: Microbiology - Last 24 Hours (Table) 12/11/18 12:45 Urine Culture - Final Urine,Voided 12/11/18 11:34 Blood Culture - Preliminary Blood No Growth after 24 hours Assessment and Plan Assessment: E. coli sepsis/septicemia. source possibly UTI Acute urinary tract infection Generalized weakness Dementia Hypertension DVT prophylaxis Plan: Patient will be continued on antibiotics in the form of ceftriaxone. Patient was given a dose of Levaquin while in the ER. Repeat blood culture and urine culture was ordered. ID is following. IV hydration. Further recommendations based on the clinical course.
--- NOTE | 2018-12-12 22:14 | P.CON ---
Consult Note - . Consult date: 12/12/18 Assessment/Plan:: This is an 88-year-old female patient who presented to the [facility] emergency center on December 09 with complaints of generalized weakness, unable to get up and around and she slipped off the toilet and could not get up. She was having difficulty getting off the couch and family noted that she is not eating or drinking normally. Temperature max 100.3, pulse 105, white count 12.3, BUN 34 and creatinine 1.5. Urinalysis was turbid, leukoesterase large, RBCs 15, WBC is greater than 182, bacteria many. Patient was discharged home on Levaquin and the patient received a call that she had a positive blood culture need to come back in the hospital and be admitted. Patient now has been afebrile, white count 6.3, BUN 29 creatinine 0.96. She received a dose of IV vancomycin was started on ceftriaxone and is status post 1 L of IV fluids. Chest x-ray showed no acute process. Patient was admitted to the [facility] floor. Repeat blood culture is status received. Urine culture was not obtained on December 09 ER visit. Urine culture for this admission is in progress. Patient denies any fever or chills, she states she is eating okay without any problems with her appetite. She denies any diarrhea. Patient states that she has ambulated in the hallway and that her weakness is improved. Patient states that she has had urinary tract infections in the past but not more than 2 in the last year. According to the patient's son, if patient needs IV antibiotics they prefer the patient go to [facility] or have antibiotics given in the office. Please see the consult note as dictated by nurse practitioner Mrs. Mireya Summers. This pleasant 88-year-old woman presents to hospital with progressive weakness evidence of sepsis and urinary tract infection. She was in hospital in the ER on 12/09/2018 treated with levofloxacin and I'll call back to Hospital with positive blood cultures in concerns to her weakness. She received some fluid resuscitation and intravenous antibiotic therapy with Rocephin. This is an excellent choice given the E. coli that has now been isolated. The patient is starting to feel somewhat better and voices no acute complaints. At this time we'll await the final results but fortunately will likely be able to return back to home to complete a course of levofloxacin for her bacteremic urinary tract infection with E. coli. Fortunately it is susceptible to E. coli which is becoming quite unusual at this time but the patient relates to the lack of recent antibiotic therapy. She does seem to be quite confused and will need to have significant improvement from the son and care management team to make sure there is safe for her to return to her home setting to complete her antibiotic therapy. I agree with evaluation, assessment and plan is to see by nurse practitioner Mrs. Mireya Summers.
[2018-12-13] MEDS: SODIUM CHLORIDE 0.9% 1,000 ML IV SCH ×2 (06:13→22:06)
[2018-12-13] MEDS: PANTOPRAZOLE 40 MG TABLET PO SCH (08:30)
[2018-12-13] MEDS: HEPARIN SODIUM,PORCINE 5,000 UNIT/ML 1 ML VIAL SQ SCH ×3 (08:30→22:07)
--- NOTE | 2018-12-13 21:56 | P.PN ---
Subjective Progress Note Date: 12/13/18 Principal diagnosis: Gram-negative bacilli/E. coli bacteremia Patient is a 88-year-old female with a known history of dementia, GERD, hypertension was called back to the hospital due to positive blood cultures. Patient was in the emergency department 2 days ago for generalized weakness and frequent falls. Labwork was obtained at that time and she was determined to have a urinary tract infection. She has been on oral antibiotics at that time. Patient was called by her primary care physician and informed of the positive blood culture. Patient blood culture did grow gram-negative rods. She was sent in for IV antibiotics. She reports that she's been doing otherwise well. Family reports that she's had increasing shortness of breath with exertion as well as a poor appetite. Patient has had no further falls since her first emergency visit. Blood cultures grew E. coli. Patient was given a dose of Levaquin while in the ER. Patient otherwise denied any complaints of cough or sputum production. No fever no chills. No nausea vomiting or abdominal pain. No diarrhea. Chest x-ray showed no acute cardio pulmonary process. Chronic changes. EKG showed sinus sinus rhythm and PACs. WBC 12.3---6.3 12/12/2018 Patient denied any complaints of chest pain or shortness of breath. No fever no chills. Repeat blood cultures have been negative as well as urine cultures. No nausea vomiting or abdominal pain. Otherwise patient is a poor historian due to underlying dementia. No other acute overnight issues. 12 13 2018 Patient is able to sit in the chair and denied any new complaints. Patient does have underlying dementia otherwise. Continued on ceftriaxone. Repeat blood cultures are negative. ID is following for final antibiotic recommendations. Current medications reviewed Objective - Vital Signs Vital signs: Vital Signs Temp 98.2 F 12/13/18 04:46 Pulse 67 12/13/18 04:46 Resp 16 12/13/18 04:46 BP 118/64 12/13/18 04:46 Pulse Ox 94 L 12/13/18 04:46 Intake & Output 12/12/18 12/13/18 12/13/18 18:59 06:59 18:59 Intake Total 1190 Balance 1190 Intake: Intake, IV Titration 600 Amount Sodium [place] 0.9% 1, 600 000 ml @ 75 mls/hr IV . [id number] [facility] Rx#:[id number] Oral 590 Other: Voiding Method Toilet Bedside Commode Bedside Commode # Voids 2 1 2 # Bowel Movements 1 - Exam PHYSICAL EXAMINATION: Patient is lying in the bed comfortably, no acute distress, awake alert and oriented.. HEENT: Normocephalic. Neck is supple. Pupils reactive. Nostrils clear. Oral cavity is moist. Ears reveal no drainage. Neck reveals no JVD, carotid bruits, or thyromegaly. CHEST EXAMINATION: Trachea is central. Symmetrical expansion. Lung strickland clear to auscultation and percussion. CARDIAC: Normal S1, S2 with no gallops. No murmurs ABDOMEN: Soft. Bowel sounds normal. No organomegaly. No abdominal bruits. Extremities: reveal no edema. No clubbing or cyanosis Neurologically awake, alert, oriented x2-3 with well-coordinated movements. Able to move all extremities. Patient does have underlying dementia. Skin: No rash or skin lesions. Psychiatric: Coperative. Could not patient is completely. Musculoskeletal: No joint swelling or deformity. Normal range of motion. - Labs CBC & Chem 7: 12/11/18 11:34 12/11/18 11:34 Labs: Microbiology - Last 24 Hours (Table) 12/11/18 11:34 Blood Culture - Preliminary Blood No Growth after 48 hours 12/11/18 12:45 Urine Culture - Final Urine,Voided Assessment and Plan Assessment: E. coli sepsis/septicemia. source possibly UTI Acute urinary tract infection Generalized weakness Dementia Hypertension DVT prophylaxis Plan: Patient will be continued on antibiotics in the form of ceftriaxone. Patient was given a dose of Levaquin while in the ER. Repeat blood culture and urine culture have been negative so far.. ID is following. IV hydration. Further recommendations based on the clinical course.
[2018-12-14 07:33] LABS: Basophils # (A) 0.1 k/uL (0-0.2); Basophils % (A) 1 %; Eosinophils # (A) 0.1 k/uL (0-0.7); Eosinophils % (A) 2 %; HGB 11.2 gm/dL (11.4-16.0); Lymphocytes # (A) 1.4 k/uL (1.0-4.8); Lymphocytes % (A) 20 %; MCH 29.7 pg (25.0-35.0); MCV 90.1 fL (80.0-100.0); Mean Platelet Volume 7.3; Monocytes # (A) 0.3 k/uL (0-1.0); Monocytes % (A) 4 %; Neutrophils % (A) 70 %; Platelet Count 276 k/uL (150-450); RBC 3.78 m/uL (3.80-5.40); RDW 13.1 % (11.5-15.5); WBC 7.1 k/uL (3.8-10.6)
[2018-12-14 07:45] LABS: Calcium 8.2 mg/dL (8.4-10.2); Potassium 3.2 mmol/L (3.5-5.1)
[2018-12-14] MEDS: HEPARIN SODIUM,PORCINE 5,000 UNIT/ML 1 ML VIAL SQ SCH ×2 (08:03→16:27)
[2018-12-14] MEDS: PANTOPRAZOLE 40 MG TABLET PO SCH (08:03)
[2018-12-14] MEDS: SODIUM CHLORIDE 0.9% 1,000 ML IV SCH (09:19)
--- NOTE | 2018-12-14 20:16 | P.PN ---
Subjective Progress Note Date: 12/14/18 Principal diagnosis: Gram-negative bacilli/E. coli bacteremia Patient is a 88-year-old female with a known history of dementia, GERD, hypertension was called back to the hospital due to positive blood cultures. Patient was in the emergency department 2 days ago for generalized weakness and frequent falls. Labwork was obtained at that time and she was determined to have a urinary tract infection. She has been on oral antibiotics at that time. Patient was called by her primary care physician and informed of the positive blood culture. Patient blood culture did grow gram-negative rods. She was sent in for IV antibiotics. She reports that she's been doing otherwise well. Family reports that she's had increasing shortness of breath with exertion as well as a poor appetite. Patient has had no further falls since her first emergency visit. Blood cultures grew E. coli. Patient was given a dose of Levaquin while in the ER. Patient otherwise denied any complaints of cough or sputum production. No fever no chills. No nausea vomiting or abdominal pain. No diarrhea. Chest x-ray showed no acute cardio pulmonary process. Chronic changes. EKG showed sinus sinus rhythm and PACs. WBC 12.3---6.3 12/12/2018 Patient denied any complaints of chest pain or shortness of breath. No fever no chills. Repeat blood cultures have been negative as well as urine cultures. No nausea vomiting or abdominal pain. Otherwise patient is a poor historian due to underlying dementia. No other acute overnight issues. 12 13 2018 Patient is able to sit in the chair and denied any new complaints. Patient does have underlying dementia otherwise. Continued on ceftriaxone. Repeat blood cultures are negative. ID is following for final antibiotic recommendations. 12/14/2018 Patient is lying in the bed comfortably. No nausea vomiting or abdominal pain. Tolerating oral diet. Repeat blood cultures and urine cultures negative. No fever no chills. Anticipate discharge tomorrow with final ID recommendations due to recent E. coli bacteremia. Current medications reviewed Objective - Vital Signs Vital signs: Vital Signs Temp 98.3 F 12/14/18 13:20 Pulse 86 12/14/18 13:20 Resp 16 12/14/18 13:20 BP 153/70 12/14/18 13:20 Pulse Ox 95 12/14/18 13:20 Intake & Output 12/14/18 12/14/18 12/15/18 06:59 18:59 06:59 Intake Total 1580 450 Balance 1580 450 Intake: Intake, IV Titration 400 450 Amount Sodium Chloride 0.9% 1, 400 400 000 ml @ 50 mls/hr IV . Q20H [facility] Rx#:[id number] cefTRIAXone 1,000 mg In 50 Sodium Chloride 0.9% 50 ml @ 100 mls/hr IVPB Q24HR [facility] Rx#:[id number] Oral 1180 Other: Voiding Method Bedside Commode Bedside Commode # Voids 1 3 - Exam PHYSICAL EXAMINATION: Patient is lying in the bed comfortably, no acute distress, awake alert and oriented.. HEENT: Normocephalic. Neck is supple. Pupils reactive. Nostrils clear. Oral cavity is moist. Ears reveal no drainage. Neck reveals no JVD, carotid bruits, or thyromegaly. CHEST EXAMINATION: Trachea is central. Symmetrical expansion. Lung strickland clear to auscultation and percussion. CARDIAC: Normal S1, S2 with no gallops. No murmurs ABDOMEN: Soft. Bowel sounds normal. No organomegaly. No abdominal bruits. Extremities: reveal no edema. No clubbing or cyanosis Neurologically awake, alert, oriented x2-3 with well-coordinated movements. Able to move all extremities. Patient does have underlying dementia. Skin: No rash or skin lesions. Psychiatric: Coperative. Could not patient is completely. Musculoskeletal: No joint swelling or deformity. Normal range of motion. - Labs CBC & Chem 7: 12/14/18 07:01 12/14/18 07:01 Labs: Abnormal Lab Results - Last 24 Hours (Table) 12/14/18 12/14/18 Range/Units 07:01 07:01 RBC 3.78 L (3.80-5.40) m/uL Hgb 11.2 L (11.4-16.0) gm/dL Potassium 3.2 L (3.5-5.1) mmol/L Chloride 112 H (98-107) mmol/L Calcium 8.2 L (8.4-10.2) mg/dL Microbiology - Last 24 Hours (Table) 12/11/18 11:34 Blood Culture - Preliminary Blood No Growth after 72 hours Assessment and Plan Assessment: E. coli sepsis/septicemia. source possibly UTI Acute urinary tract infection Generalized weakness Dementia Hypertension DVT prophylaxis Plan: Patient will be continued on antibiotics in the form of ceftriaxone. Patient was given a dose of Levaquin while in the ER. Repeat blood culture and urine culture have been negative so far.. ID is following. IV hydration. Further recommendations based on the clinical course.
[2018-12-15] MEDS: HEPARIN SODIUM,PORCINE 5,000 UNIT/ML 1 ML VIAL SQ SCH ×3 (00:07→17:04)
[2018-12-15] MEDS: ACETAMINOPHEN TAB 325 MG TAB PO PRN (03:37)
[2018-12-15] MEDS: PANTOPRAZOLE 40 MG TABLET PO SCH (07:49)
--- NOTE | 2018-12-15 20:45 | P.PN ---
Subjective Patient is a 88-year-old female with a known history of dementia, GERD, hypertension was called back to the hospital due to positive blood cultures. Patient was in the emergency department 2 days ago for generalized weakness and frequent falls. Labwork was obtained at that time and she was determined to have a urinary tract infection. She has been on oral antibiotics at that time. Patient was called by her primary care physician and informed of the positive blood culture. Patient blood culture did grow gram-negative rods. She was sent in for IV antibiotics. She reports that she's been doing otherwise well. Family reports that she's had increasing shortness of breath with exertion as well as a poor appetite. Patient has had no further falls since her first emergency visit. Blood cultures grew E. coli. Patient was given a dose of Levaquin while in the ER. Patient otherwise denied any complaints of cough or sputum production. No fever no chills. No nausea vomiting or abdominal pain. No diarrhea. Chest x-ray showed no acute cardio pulmonary process. Chronic changes. EKG showed sinus sinus rhythm and PACs. WBC 12.3---6.3 12/12/2018 Patient denied any complaints of chest pain or shortness of breath. No fever no chills. Repeat blood cultures have been negative as well as urine cultures. No nausea vomiting or abdominal pain. Otherwise patient is a poor historian due to underlying dementia. No other acute overnight issues. 12 13 2018 Patient is able to sit in the chair and denied any new complaints. Patient does have underlying dementia otherwise. Continued on ceftriaxone. Repeat blood cultures are negative. ID is following for final antibiotic recommendations. 12/14/2018 Patient is lying in the bed comfortably. No nausea vomiting or abdominal pain. Tolerating oral diet. Repeat blood cultures and urine cultures negative. No fever no chills. Anticipate discharge tomorrow with final ID recommendations due to recent E. coli bacteremia. Current medications reviewed 12/15/2018 Patient was lying in bed comfortable, she is oriented to place only And confused to time and person. No chest pain , no dyspnea , no abdominal pain. Patient denies dysuria or change in frequency, no other signs symptoms of urinary tract infection like no suprapubic tenderness. Patient denies depression signs and symptoms. She has no hopelessness or helplessness. She denies suicidal ideation. Objective - Vital Signs Vital signs: Vital Signs Temp 98.6 F 12/15/18 04:43 Pulse 86 12/15/18 03:54 Resp 16 12/15/18 03:54 BP 156/69 12/15/18 03:54 Pulse Ox 91 L 12/15/18 03:54 Intake & Output 12/14/18 12/15/18 12/15/18 18:59 06:59 18:59 Intake Total 450 1290 Balance 450 1290 Weight 56.699 kg Intake: Intake, IV Titration 450 600 Amount Sodium Chloride 0.9% 1, 400 600 000 ml @ 50 mls/hr IV . Q20H [facility] Rx#:[id number] cefTRIAXone 1,000 mg In 50 Sodium Chloride 0.9% 50 ml @ 100 mls/hr IVPB Q24HR [facility] Rx#:[id number] Oral 690 Other: Voiding Method Bedside Commode Bedside Commode Bedside Commode # Voids 3 3 # Bowel Movements 1 - Exam -Patient is lying in the bed comfortably, no acute distress, awake alert and oriented to person only HEENT: Normocephalic. Neck is supple. Pupils reactive. Nostrils clear. Oral cavity is moist. Ears reveal no drainage. Neck reveals no JVD, carotid bruits, or thyromegaly. CHEST EXAMINATION: Trachea is central. Symmetrical expansion. Lung strickland clear to auscultation and percussion. CARDIAC: Normal S1, S2 with no gallops. No murmurs ABDOMEN: Soft. Bowel sounds normal. No organomegaly. No abdominal bruits. Extremities: reveal no edema. No clubbing or cyanosis Neurologically awake, alert, oriented x2-3 with well-coordinated movements. Able to move all extremities. Patient does have underlying dementia. Skin: No rash or skin lesions. Psychiatric: Coperative. Could not patient is completely. Musculoskeletal: No joint swelling or deformity. Normal range of motion. - Labs CBC & Chem 7: 12/14/18 07:01 12/14/18 07:01 Labs: Microbiology - Last 24 Hours (Table) 12/11/18 11:34 Blood Culture - Preliminary Blood No Growth after 72 hours Assessment and Plan Assessment: E. coli sepsis/septicemia. source possibly UTI Acute urinary tract infection Generalized weakness Dementia Hypertension DVT prophylaxis Plan: Plan: Patient will be continued on antibiotics in the form of ceftriaxone. Repeat blood culture and urine culture have been negative so far.. ID is following. IV hydration. Possible discharge in 24-48 hours was cleared by other consultants. Further recommendations based on the clinical course.
--- NOTE | 2018-12-15 22:48 | P.PN ---
Subjective Progress Note Date: 12/15/18 This is an 88-year-old female patient who presented to the [facility] emergency center on December 09 with complaints of generalized weakness, unable to get up and around and she slipped off the toilet and could not get up. She was having difficulty getting off the couch and family noted that she is not eating or drinking normally. Temperature max 100.3, pulse 105, white count 12.3, BUN 34 and creatinine 1.5. Urinalysis was turbid, leukoesterase large, RBCs 15, WBC is greater than 182, bacteria many. Patient was discharged home on Levaquin and the patient received a call that she had a positive blood culture need to come back in the hospital and be admitted. Patient now has been afebrile, white count 6.3, BUN 29 creatinine 0.96. She received a dose of IV vancomycin was started on ceftriaxone and is status post 1 L of IV fluids. Chest x-ray showed no acute process. Patient was admitted to the [facility] floor. Repeat blood culture is status received. Urine culture was not obtained on December 09 ER visit. Urine culture for this admission is in progress. Patient denies any fever or chills, she states she is eating okay without any problems with her appetite. She denies any diarrhea. Patient states that she has ambulated in the hallway and that her weakness is improved. Patient states that she has had urinary tract infections in the past but not more than 2 in the last year. According to the patient's son, if patient needs IV antibiotics they prefer the patient go to [facility] or have antibiotics given in the office. 12/15/2018 the patient is feeling considerably better. She is eating her dinner without any difficulties. Denies nausea or emesis. Denies any dysuria. Her strength is increasing. Is working with physical therapy to ensure she has enough strength for discharge to home. Objective - Vital Signs Vital signs: Vital Signs Temp 99 F 12/15/18 21:00 Pulse 87 12/15/18 21:00 Resp 17 12/15/18 21:00 BP 156/76 12/15/18 21:00 Pulse Ox 91 L 12/15/18 21:00 Intake & Output 12/15/18 12/15/18 12/16/18 06:59 18:59 06:59 Intake Total 1290 850 Balance 1290 850 Weight 56.699 kg Intake: Intake, IV Titration 600 450 Amount Sodium Chloride 0.9% 1, 600 400 000 ml @ 50 mls/hr IV . Q20H [facility] Rx#:[id number] cefTRIAXone 1,000 mg In 50 Sodium Chloride 0.9% 50 ml @ 100 mls/hr IVPB Q24HR [facility] Rx#:[id number] Oral 690 400 Other: Voiding Method Bedside Commode Bedside Commode # Voids 3 1 # Bowel Movements 1 1 - Exam Gen: This is an 88-year-old female. She is sitting in bed appears to be comfortable and in no acute distress. Patient is eating her dinner with no signs of dysphagia. HEENT: Head is atraumatic, normocephalic. Pupils equal, round. Sclerae is anicteric. Conjunctiva pink. Mucous members of the mouth are moist. No thrush noted. No oropharyngeal erythema or edema. NECK: Supple. No JVD. No lymphadenopathy. No thyromegaly. LUNGS: Clear to auscultation. No wheezes or rhonchi. No intercostal retractions. HEART: Regular rate and rhythm. No murmur. ABDOMEN: Soft. Bowel sounds are present. No masses. No tenderness. No suprapubic tenderness. No CVA tenderness bilaterally. EXTREMITIES: No pedal edema. No calf tenderness. Dorsalis pedis is +2 bilaterally NEUROLOGICAL: Patient is awake, alert and oriented x3. - Labs CBC & Chem 7: 12/14/18 07:01 12/14/18 07:01 Labs: Microbiology - Last 24 Hours (Table) 12/11/18 11:34 Blood Culture - Preliminary Blood No Growth after 96 hours Laboratory Results WBC 7.1 k/uL (3.8-10.6) 12/14/18 07:01 RBC 3.78 m/uL (3.80-5.40) L 12/14/18 07:01 Hgb 11.2 gm/dL (11.4-16.0) L 12/14/18 07:01 Hct 34.0 % (34.0-46.0) 12/14/18 07:01 MCV 90.1 fL (80.0-100.0) 12/14/18 07:01 MCH 29.7 pg (25.0-35.0) 12/14/18 07:01 MCHC 33.0 g/dL (31.0-37.0) 12/14/18 07:01 RDW 13.1 % (11.5-15.5) 12/14/18 07:01 Plt Count 276 k/uL (150-450) 12/14/18 07:01 Neutrophils % 70 % 12/14/18 07:01 Lymphocytes % 20 % 12/14/18 07:01 Monocytes % 4 % 12/14/18 07:01 Eosinophils % 2 % 12/14/18 07:01 Basophils % 1 % 12/14/18 07:01 Neutrophils # 5.0 k/uL (1.3-7.7) 12/14/18 07:01 Lymphocytes # 1.4 k/uL (1.0-4.8) 12/14/18 07:01 Monocytes # 0.3 k/uL (0-1.0) 12/14/18 07:01 Eosinophils # 0.1 k/uL (0-0.7) 12/14/18 07:01 Basophils # 0.1 k/uL (0-0.2) 12/14/18 07:01 PT 10.1 sec (9.0-12.0) 12/11/18 11:34 INR 0.9 (<1.2) 12/11/18 11:34 APTT 25.0 sec (22.0-30.0) 12/11/18 11:34 Sodium 142 mmol/L (137-145) 12/14/18 07:01 Potassium 3.2 mmol/L (3.5-5.1) L 12/14/18 07:01 Chloride 112 mmol/L (98-107) H 12/14/18 07:01 Carbon Dioxide 24 mmol/L (22-30) 12/14/18 07:01 Anion Gap 6 mmol/L 12/14/18 07:01 BUN 13 mg/dL (7-17) 12/14/18 07:01 Creatinine 0.78 mg/dL (0.52-1.04) 12/14/18 07:01 Est GFR (CKD-EPI)AfAm 79 (>60 ml/min/1.73 sqM) 12/14/18 07:01 Est GFR (CKD-EPI)NonAf 69 (>60 ml/min/1.73 sqM) 12/14/18 07:01 Glucose 88 mg/dL (74-99) 12/14/18 07:01 Plasma Lactic Acid [place] 1.4 mmol/L (0.7-2.0) 12/11/18 11:34 Calcium 8.2 mg/dL (8.4-10.2) L 12/14/18 07:01 Total Bilirubin 0.4 mg/dL (0.2-1.3) 12/11/18 11:34 AST 36 U/L (14-36) 12/11/18 11:34 ALT 21 U/L (9-52) 12/11/18 11:34 Alkaline Phosphatase 64 U/L (38-126) 12/11/18 11:34 Troponin I 0.019 ng/mL (0.000-0.034) 12/11/18 11:34 Total Protein 7.1 g/dL (6.3-8.2) 12/11/18 11:34 Albumin 3.5 g/dL (3.5-5.0) 12/11/18 11:34 Urine Color Yellow 12/11/18 12:45 Urine Appearance Cloudy (Clear) H 12/11/18 12:45 Urine pH 6.0 (5.0-8.0) 12/11/18 12:45 Ur Specific [place] 1.008 (1.001-1.035) 12/11/18 12:45 Urine Protein Trace (Negative) H 12/11/18 12:45 Urine Glucose (UA) Negative (Negative) 12/11/18 12:45 Urine Ketones Negative (Negative) 12/11/18 12:45 Urine Blood Trace (Negative) H 12/11/18 12:45 Urine Nitrite Negative (Negative) 12/11/18 12:45 Urine Bilirubin Negative (Negative) 12/11/18 12:45 Urine Urobilinogen <2.0 mg/dL (<2.0) 12/11/18 12:45 Ur Leukocyte Esterase Large (Negative) H 12/11/18 12:45 Urine RBC 3 /hpf (0-5) 12/11/18 12:45 Urine WBC 177 /hpf (0-5) H 12/11/18 12:45 Ur Squamous Epith Cells <1 /hpf (0-4) 12/11/18 12:45 Urine Bacteria Rare /hpf (None) H 12/11/18 12:45 Microbiology 12/11/18 11:34 Blood Blood Culture - Preliminary No Growth after 96 hours 12/11/18 12:45 Urine,Voided Urine Culture - Final Assessment and Plan (1) Positive blood culture Current Visit: Yes Status: Acute Code(s): R78.81 - BACTEREMIA SNOMED Code( s): 474180923 (2) E coli bacteremia Narrative/Plan: This pleasant 88-year-old woman presents to hospital with progressive weakness evidence of sepsis and urinary tract infection. She was in hospital in the ER on 12/09/2018 treated with levofloxacin and I'll call back to Hospital with positive blood cultures in concerns to her weakness. She received some fluid resuscitation and intravenous antibiotic therapy with Rocephin. This is an excellent choice given the E. coli that has now been isolated. The patient is starting to feel somewhat better and voices no acute complaints. At this time we'll await the final results but fortunately will likely be able to return back to home to complete a course of levofloxacin for her bacteremic urinary tract infection with E. coli. Fortunately it is susceptible to E. coli which is becoming quite unusual at this time but the patient relates to the lack of recent antibiotic therapy. She does seem to be quite confused and will need to have significant improvement from the son and care management team to make sure there is safe for her to return to her home setting to complete her antibiotic therapy 12/15/2018 patient has further improvement of her status. Eating and drinking well. Physical therapy is evaluating to ensure that she has strength for discharge to home. She will not require intravenous antibiotic therapy since the E. coli susceptible to Levaquin and this is planned to complete her therapy for home for E. coli urinary tract infection with bacteremia. Current Visit: Yes Status: Acute Code(s): R78.81 - BACTEREMIA SNOMED Code( s): 376900689270
[2018-12-16] MEDS: SODIUM CHLORIDE 0.9% 1,000 ML IV SCH ×2 (00:30→17:06)
[2018-12-16] MEDS: HEPARIN SODIUM,PORCINE 5,000 UNIT/ML 1 ML VIAL SQ SCH ×3 (00:31→17:06)
[2018-12-16] MEDS: PANTOPRAZOLE 40 MG TABLET PO SCH (08:56)
[2018-12-16] MEDS ORDERED: cefTRIAXone 1,000 MG VIAL (IM USE) IM SCH (09:00)
--- NOTE | 2018-12-16 09:45 | P.PN ---
Subjective Patient is a 88-year-old female with a known history of dementia, GERD, hypertension was called back to the hospital due to positive blood cultures. Patient was in the emergency department 2 days ago for generalized weakness and frequent falls. Labwork was obtained at that time and she was determined to have a urinary tract infection. She has been on oral antibiotics at that time. Patient was called by her primary care physician and informed of the positive blood culture. Patient blood culture did grow gram-negative rods. She was sent in for IV antibiotics. She reports that she's been doing otherwise well. Family reports that she's had increasing shortness of breath with exertion as well as a poor appetite. Patient has had no further falls since her first emergency visit. Blood cultures grew E. coli. Patient was given a dose of Levaquin while in the ER. Patient otherwise denied any complaints of cough or sputum production. No fever no chills. No nausea vomiting or abdominal pain. No diarrhea. Chest x-ray showed no acute cardio pulmonary process. Chronic changes. EKG showed sinus sinus rhythm and PACs. WBC 12.3---6.3 12/12/2018 Patient denied any complaints of chest pain or shortness of breath. No fever no chills. Repeat blood cultures have been negative as well as urine cultures. No nausea vomiting or abdominal pain. Otherwise patient is a poor historian due to underlying dementia. No other acute overnight issues. 12 13 2018 Patient is able to sit in the chair and denied any new complaints. Patient does have underlying dementia otherwise. Continued on ceftriaxone. Repeat blood cultures are negative. ID is following for final antibiotic recommendations. 12/14/2018 Patient is lying in the bed comfortably. No nausea vomiting or abdominal pain. Tolerating oral diet. Repeat blood cultures and urine cultures negative. No fever no chills. Anticipate discharge tomorrow with final ID recommendations due to recent E. coli bacteremia. Current medications reviewed 12/15/2018 Patient was lying in bed comfortable, she is oriented to place only And confused to time and person. No chest pain , no dyspnea , no abdominal pain. Patient denies dysuria or change in frequency, no other signs symptoms of urinary tract infection like no suprapubic tenderness. Patient denies depression signs and symptoms. She has no hopelessness or helplessness. She denies suicidal ideation. 12/16/2018 Patient was lying in bed not in distress. Denies chest pain or abdominal pain. Patient was limited tachypneic. She spiked fever yesterday at low temperature 100.0 and today 99.7. Repeat chest x-ray. Discussed with the discharge plan with the patient she does not want to go to rehab and preferred to go home because she said she has a lot of things to do patient was informed about 2 cm right kidney lesion that needs further evaluation and she verbalized understanding and acceptance. Patient might benefit from urologist evaluation. ID team input is appreciated and they recommended oral Levaquin upon discharge CONSTITUTIONAL: No fever, no malaise, no fatigue. HEENT: No recent visual problems or hearing problems. Denied any sore throat. CARDIOVASCULAR: No orthopnea, PND, no palpitations, no syncope. PULMONARY: No shortness of breath, no cough, no hemoptysis. GASTROINTESTINAL: No diarrhea, no nausea, no vomiting, no abdominal pain. Normoactive bowel sounds. NEUROLOGICAL: No headaches, no weakness, no numbness. HEMATOLOGICAL: Denies any bleeding or petechiae. GENITOURINARY: Denies any burning micturition, frequency, or urgency. MUSCULOSKELETAL/RHEUMATOLOGICAL: Denies any joint pain, swelling, or any muscle pain. ENDOCRINE: Denies any polyuria or polydipsia. Medications reviewed and include: Tylenol, Tylenol No. 3, Rocephin, Zofran, Percocet, Protonix, normal saline at 50 mm per hour Objective - Vital Signs Vital signs: Vital Signs Temp 99.7 F H 12/16/18 04:49 Pulse 82 12/16/18 04:49 Resp 16 12/16/18 04:49 BP 160/72 12/16/18 04:49 Pulse Ox 91 L 12/16/18 04:49 Intake & Output 12/15/18 12/16/18 12/16/18 18:59 06:59 18:59 Intake Total 850 200 Balance 850 200 Intake: Intake, IV Titration 450 Amount Sodium Chloride 0.9% 1, 400 000 ml @ 50 mls/hr IV . Q20H [facility] Rx#:[id number] cefTRIAXone 1,000 mg In 50 Sodium Chloride 0.9% 50 ml @ 100 mls/hr IVPB Q24HR [facility] Rx#:[id number] Oral 400 200 Other: Voiding Method Bedside Commode Bedside Commode Diaper Incontinent # Voids 1 2 # Bowel Movements 1 1 - Exam -Patient is lying in the bed comfortably, no acute distress, awake alert and oriented to person only HEENT: Normocephalic. Neck is supple. Pupils reactive. Nostrils clear. Oral cavity is moist. Ears reveal no drainage. Neck reveals no JVD, carotid bruits, or thyromegaly. CHEST EXAMINATION: Trachea is central. Symmetrical expansion. Lung strickland clear to auscultation and percussion. CARDIAC: Normal S1, S2 with no gallops. No murmurs ABDOMEN: Soft. Bowel sounds normal. No organomegaly. No abdominal bruits. Extremities: reveal no edema. No clubbing or cyanosis Neurologically awake, alert, oriented x2-3 with well-coordinated movements. Able to move all extremities. Patient does have underlying dementia. Skin: No rash or skin lesions. Psychiatric: Coperative. Could not patient is completely. Musculoskeletal: No joint swelling or deformity. Normal range of motion. - Labs CBC & Chem 7: 12/14/18 07:01 12/14/18 07:01 Labs: Microbiology - Last 24 Hours (Table) 12/11/18 11:34 Blood Culture - Preliminary Blood No Growth after 96 hours Assessment and Plan Assessment: E. coli sepsis/septicemia. source possibly UTI Acute urinary tract infection Right kidney lesion about 2 cm. Generalized weakness Dementia Hypertension DVT prophylaxis Plan: Plan: Patient will be continued on antibiotics in the form of ceftriaxone. Repeat blood culture and urine culture have been negative so far.. ID is following. IV hydration. Possible discharge in 24-48 hours was cleared by other consultants. Further recommendations based on the clinical course.
--- NOTE | 2018-12-16 11:05 | XR ---
EXAMINATION TYPE: XR chest 1V portable DATE OF EXAM: 12/16/2018 CLINICAL HISTORY: Difficulty breathing progress study. TECHNIQUE: Single AP portable upright view of the chest is obtained. COMPARISON: Chest x-ray from 5 days earlier. FINDINGS: There is chronic parenchymal change with new small right pleural effusion suspected as the re is blunting of lateral costophrenic angle. There is new left basilar opacity also identified. Card iac silhouette size is stable mildly enlarged with atherosclerotic thoracic aorta. Osseous structures are demineralized. Surgical clips in the overlying lateral lower left breast are noted. IMPRESSION: Chronic parenchymal change and cardiomegaly with new small right pleural effusion and new left basilar acute infiltrate and/or atelectasis with probable small to tiny left pleural effusion. Consider progress two-view chest x-ray.
[2018-12-16] MEDS: amLODIPine 5 MG TAB PO SCH (13:21)
[2018-12-16] MEDS ORDERED: Magnesium Replacement Protocol 1 EACH MISC MISCELLANE PRN (16:46)
[2018-12-16] MEDS ORDERED: Potassium Replacement Protocol 1 EACH MISC MISCELLANE PRN (16:46)
[2018-12-16 20:32] VITALS: RESP 16
[2018-12-16] MEDS: AMMONIUM LACTATE 12% LOTION 225 GM BTL TOPICAL SCH (21:03)
[2018-12-16] MEDS: ACETAMINOPHEN TAB 325 MG TAB PO PRN (22:27)
[2018-12-17] MEDS: SODIUM CHLORIDE 0.9% 1,000 ML IV SCH (00:16)
[2018-12-17] MEDS: PIPERACILLIN-TAZOBACTAM 3.375 GM in SODIUM CHLORIDE 0.9% 100 ML IVPB SCH ×3 (00:17→16:16)
[2018-12-17] MEDS: HEPARIN SODIUM,PORCINE 5,000 UNIT/ML 1 ML VIAL SQ SCH ×3 (00:17→16:16)
--- NOTE | 2018-12-17 08:18 | P.GSCN ---
History of Present Illness Consult date: 12/17/18 History of present illness: I was asked to see this patient for an abnormal renal ultrasound. She is in the hospital for urinary tract infection with sepsis, positive blood cultures. She had weakness and frequent falls led to the evaluation. A renal ultrasound showed a 2 cm atypical looking cyst on the right kidney. Urologically she is asymptomatic. Is been no hematuria. There's been no kidney stones. There is no previous urologic surgery. The patient has some dementia some uncertain as to the value of the history. Review of Systems ROS unobtainable: due to mental status Past Medical History Past Medical History: Dementia, GERD/Reflux, Hypertension Additional Past Medical History / Comment(s): falls History of Any Multi-Drug Resistant Organisms: None Reported Additional Past Surgical History / Comment(s): pt poor historian and son that was with her stated that the only sx he know of was abd sx either on bladder or kidney? and lasik eye sx Past Anesthesia/Blood Transfusion Reactions: No Reported Reaction Additional Past Anesthesia/Blood Transfusion Reaction / Comm: never had a blood transfusion Smoking Status: Never smoker Additional Past Alcohol Use History / Comment(s): Patient is a lifelong nonsmoker, no marijuana or illicit drug use. No alcohol use. Patient lives at home with her . She has traveled about a year ago to the [place] area. - Past Family History Father Additional Family Medical History / Comment(s): in his 60's from post op infection Mother Family Medical History: Cancer Additional Family Medical History / Comment(s): colon cancer. " from old age " Medications and Allergies Home Medications Medication Instructions Recorded Confirmed Type ALPRAZolam [Xanax] 0.25 mg PO BID 12/09/18 12/11/18 History Donepezil [Aricept] 10 mg PO HS 12/09/18 12/11/18 History Losartan Potassium 50 mg PO DAILY 12/09/18 12/11/18 History Omeprazole 20 mg PO DAILY 12/09/18 12/11/18 History amLODIPine [Norvasc] 5 mg PO DAILY 12/09/18 12/11/18 History Levofloxacin [Levaquin] 500 mg PO DAILY 12/11/18 12/11/18 History Levofloxacin [Levaquin] 500 mg PO DAILY 3 Days #3 tab 12/15/18 Rx Allergies Allergy/AdvReac Type Severity Reaction Status Date / Time Sulfa (Sulfonamide Allergy Unknown Verified 12/11/18 11:03 Antibiotics) Surgical - Exam Vital Signs Temp Pulse Resp BP Pulse Ox 97.5 F L 95 16 134/74 97 12/11/18 10:47 12/11/18 10:47 12/11/18 10:47 12/11/18 10:47 12/11/18 10:47 - General well developed, well nourished, no distress - Eyes PERRL - ENT no hearing loss - Neck trachea midline - Respiratory normal expansion, normal respiratory effort - Cardiovascular Rhythm: regular - Abdomen Abdomen: soft, non tender - Neurologic normal coordination, normal sensation - Musculoskeletal Patient has marked kyphosis - Psychiatric oriented to person, speech is normal Results - Labs 12/14/18 07:01 12/14/18 07:01 Microbiology - Last 24 Hours (Table) 12/11/18 11:34 Blood Culture - Preliminary Blood No Growth after 120 hours - Imaging US - abdomen: report reviewed, image reviewed US - pelvic: report reviewed, image reviewed Assessment and Plan Assessment: Impression: This patient has an atypical renal ultrasound, atypical right renal cyst. Recommendations: The recommendation is for a computed tomography scan with and without contrast to further to characterize the renal cystic lesion.
--- NOTE | 2018-12-17 08:26 | XR ---
EXAMINATION TYPE: XR chest 2V DATE OF EXAM: 12/17/2018 COMPARISON: 12/16/2018 INDICATION: Follow-up previous abnormal chest TECHNIQUE: Frontal and lateral views of the chest are obtained. FINDINGS: The heart size is normal. The pulmonary vasculature is normal. Small left pleural effusion may be present. Findings are stable from comparison. Small right pleural effusion is present. There is exaggeration of thoracic kyphosis. IMPRESSION: 1. Small stable bilateral pleural effusions. Continued follow-up is recommended.
[2018-12-17] MEDS: PANTOPRAZOLE 40 MG TABLET PO SCH (08:31)
[2018-12-17] MEDS: amLODIPine 5 MG TAB PO SCH (08:31)
[2018-12-17] MEDS: AMMONIUM LACTATE 12% LOTION 225 GM BTL TOPICAL SCH (08:31)
[2018-12-17 08:49] LABS: Basophils % (A) 0 %; Eosinophils # (A) 0.1 k/uL (0-0.7); Eosinophils % (A) 2 %; HCT 35.6 % (34.0-46.0); HGB 11.8 gm/dL (11.4-16.0); Lymphocytes # (A) 0.9 k/uL (1.0-4.8); Lymphocytes % (A) 15 %; MCH 30.4 pg (25.0-35.0); MCHC 33.2 g/dL (31.0-37.0); MCV 91.5 fL (80.0-100.0); Mean Platelet Volume 7.8; Monocytes # (A) 0.6 k/uL (0-1.0); Monocytes % (A) 9 %; Neutrophils # (A) 4.5 k/uL (1.3-7.7); Neutrophils % (A) 72 %; Platelet Count 315 k/uL (150-450); RBC 3.89 m/uL (3.80-5.40); RDW 13.2 % (11.5-15.5); WBC 6.3 k/uL (3.8-10.6)
[2018-12-17 09:16] LABS: Calcium 8.1 mg/dL (8.4-10.2)
[2018-12-17] MEDS ORDERED: Potassium Replacement Protocol 1 EACH MISC MISCELLANE PRN (11:28)
[2018-12-17] MEDS ORDERED: POTASSIUM CHLORIDE ER 20 MEQ TAB.ER PO STA (11:30)
--- NOTE | 2018-12-17 11:30 | P.PN ---
Subjective Patient is a 88-year-old female with a known history of dementia, GERD, hypertension was called back to the hospital due to positive blood cultures. Patient was in the emergency department 2 days ago for generalized weakness and frequent falls. Labwork was obtained at that time and she was determined to have a urinary tract infection. She has been on oral antibiotics at that time. Patient was called by her primary care physician and informed of the positive blood culture. Patient blood culture did grow gram-negative rods. She was sent in for IV antibiotics. She reports that she's been doing otherwise well. Family reports that she's had increasing shortness of breath with exertion as well as a poor appetite. Patient has had no further falls since her first emergency visit. Blood cultures grew E. coli. Patient was given a dose of Levaquin while in the ER. Patient otherwise denied any complaints of cough or sputum production. No fever no chills. No nausea vomiting or abdominal pain. No diarrhea. Chest x-ray showed no acute cardio pulmonary process. Chronic changes. EKG showed sinus sinus rhythm and PACs. WBC 12.3---6.3 12/12/2018 Patient denied any complaints of chest pain or shortness of breath. No fever no chills. Repeat blood cultures have been negative as well as urine cultures. No nausea vomiting or abdominal pain. Otherwise patient is a poor historian due to underlying dementia. No other acute overnight issues. 12 13 2018 Patient is able to sit in the chair and denied any new complaints. Patient does have underlying dementia otherwise. Continued on ceftriaxone. Repeat blood cultures are negative. ID is following for final antibiotic recommendations. 12/14/2018 Patient is lying in the bed comfortably. No nausea vomiting or abdominal pain. Tolerating oral diet. Repeat blood cultures and urine cultures negative. No fever no chills. Anticipate discharge tomorrow with final ID recommendations due to recent E. coli bacteremia. Current medications reviewed 12/15/2018 Patient was lying in bed comfortable, she is oriented to place only And confused to time and person. No chest pain , no dyspnea , no abdominal pain. Patient denies dysuria or change in frequency, no other signs symptoms of urinary tract infection like no suprapubic tenderness. Patient denies depression signs and symptoms. She has no hopelessness or helplessness. She denies suicidal ideation. 12/16/2018 Patient was lying in bed not in distress. Denies chest pain or abdominal pain. Patient was limited tachypneic. She spiked fever yesterday at low temperature 100.0 and today 99.7. Repeat chest x-ray. Discussed with the discharge plan with the patient she does not want to go to rehab and preferred to go home because she said she has a lot of things to do patient was informed about 2 cm right kidney lesion that needs further evaluation and she verbalized understanding and acceptance. Patient might benefit from urologist evaluation. ID team input is appreciated and they recommended oral Levaquin upon discharge 12/17/2018 Patient habits tachypneic yesterday and suspicion for pneumonia on the chest x- ray. Antibiotic was changed to Zosyn. Today her dyspnea is improving and repeat chest x-ray showing small bilateral pleural effusion. Neurologist evaluated the patient for 2 cm cyst in the right kidney and recommended CAT scan of the abdomen and pelvis with and without contrast. Last fever was on . At 100.0, and she has a low-grade temperature yesterday at 99.7. Labs reviewed showing WBC 6.3. Sodium 141. Potassium 3.0. CONSTITUTIONAL: No fever, no malaise, no fatigue. HEENT: No recent visual problems or hearing problems. Denied any sore throat. CARDIOVASCULAR: No orthopnea, PND, no palpitations, no syncope. PULMONARY: No shortness of breath, no cough, no hemoptysis. GASTROINTESTINAL: No diarrhea, no nausea, no vomiting, no abdominal pain. Normoactive bowel sounds. NEUROLOGICAL: No headaches, no weakness, no numbness. HEMATOLOGICAL: Denies any bleeding or petechiae. GENITOURINARY: Denies any burning micturition, frequency, or urgency. MUSCULOSKELETAL/RHEUMATOLOGICAL: Denies any joint pain, swelling, or any muscle pain. ENDOCRINE: Denies any polyuria or polydipsia. Medications reviewed and include: Tylenol, Tylenol No. 3, Rocephin, Zofran, Percocet, Protonix, normal saline at 50 mm per hour, Zosyn Objective - Vital Signs Vital signs: Vital Signs Temp 98.2 F 12/17/18 05:00 Pulse 71 12/17/18 05:00 Resp 16 12/17/18 05:00 BP 149/67 12/17/18 05:00 Pulse Ox 96 12/17/18 05:00 Intake & Output 12/16/18 12/17/18 12/17/18 18:59 06:59 18:59 Intake Total 500 Balance 500 Intake: Intake, IV Titration 300 Amount Piperacillin-Tazobactam 3 100 .375 gm In Sodium Chloride 0.9% 100 ml @ 25 mls/hr IVPB Q8HR [facility] Rx# :[id number] Sodium Chloride 0.9% 1, 200 000 ml @ 50 mls/hr IV . Q20H [facility] Rx#:[id number] Oral 200 Other: Voiding Method Bedside Commode Bedside Commode Diaper Diaper Incontinent Incontinent # Voids 1 1 - Exam -Patient is lying in the bed comfortably, no acute distress, awake alert and oriented to person only HEENT: Normocephalic. Neck is supple. Pupils reactive. Nostrils clear. Oral cavity is moist. Ears reveal no drainage. Neck reveals no JVD, carotid bruits, or thyromegaly. CHEST EXAMINATION: Trachea is central. Symmetrical expansion. Lung strickland clear to auscultation and percussion. CARDIAC: Normal S1, S2 with no gallops. No murmurs ABDOMEN: Soft. Bowel sounds normal. No organomegaly. No abdominal bruits. Extremities: reveal no edema. No clubbing or cyanosis Neurologically awake, alert, oriented x2-3 with well-coordinated movements. Able to move all extremities. Patient does have underlying dementia. Skin: No rash or skin lesions. Psychiatric: Coperative. Could not patient is completely. Musculoskeletal: No joint swelling or deformity. Normal range of motion. - Labs CBC & Chem 7: 12/17/18 07:26 12/17/18 07:26 Labs: Abnormal Lab Results - Last 24 Hours (Table) 12/17/18 12/17/18 Range/Units 07:26 07:26 Lymphocytes # 0.9 L (1.0-4.8) k/uL Potassium 3.0 L (3.5-5.1) mmol/L Calcium 8.1 L (8.4-10.2) mg/dL Microbiology - Last 24 Hours (Table) 12/11/18 11:34 Blood Culture - Preliminary Blood No Growth after 120 hours Assessment and Plan Assessment: E. coli sepsis/septicemia. source possibly UTI Possible pneumonia, improving Acute urinary tract infection Right kidney lesion about 2 cm. urological evaluation is appreciated. Generalized weakness Dementia Hypertension DVT prophylaxis Plan: Plan: Patient will be continued on antibiotics in the form of Zosyn. Repeat blood culture and urine culture have been negative so far.. ID is following. IV hydration. Neurologist evaluation is appreciated and the recommend CAT scan of the abdomen with and without contrast Further recommendations based on the clinical course. Discussed the plan with the patient, she refused to go to rehab and periphery going home with family.
--- NOTE | 2018-12-17 11:46 | CT ---
EXAMINATION TYPE: CT abdomen pelvis wo/w con DATE OF EXAM: 12/17/2018 HISTORY: Atypical right renal cyst per order. Recent abnormal ultrasound. CT DLP: 876.5mGycm Automated Exposure Control for Dose Reduction was Utilized. CONTRAST: CT scan of the abdomen and pelvis is performed without oral but without and with IV Contrast, patient injected with 100 mL of Isovue 300. COMPARISON: Renal ultrasound December 12, 2018 FINDINGS: Evaluation noted suboptimal due to artifact from patient's adjacent upper extremities. In a ddition patient has very little intra-abdominal fat making evaluation suboptimal. LUNG BASES: There are small to moderate-sized bilateral pleural effusions with associated compressive atelectasis. LIVER/GB: No significant abnormality is appreciated. PANCREAS: No significant abnormality is seen. SPLEEN: No significant abnormality is seen. 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 KIDNEYS: Noncontrast images show no renal calculi bilaterally with particular attention to area of ul trasound concern upper pole level left kidney. Postcontrast images show symmetric cortical medullary uptake and excretion from both kidneys without hydronephrosis bilaterally. There are 2-3 subcentimete r low dense lesions scattered throughout the left kidney that are too small to further characterize b ut favor benign simple cysts, for reference lower pole level lesion medially on axial image 33 series 9 is noted. Right kidney shows 2 mm fat density focus too small to further characterize mid pole lev el coronal series 13 image 42. No 1 to 2 cm suspicious solid or cystic masses identified in the right kidney to correspond to lesion of concern. Bladder is somewhat poorly distended without suspicious i ntraluminal mass or calculus. BOWEL: Evaluation bowel is slightly suboptimal secondary to lack of enteric contrast. No suspicious small or large bowel dilatation are present. Diverticula in the sigmoid colon are identified. No CT e vidence for acute diverticulitis. Low-lying cecum into anterior right pelvis is noted. UTERUS/ADNEXA: Anteverted uterus is seen. LYMPH NODES: No greater than 1cm abdominal or pelvic lymph nodes are appreciated. OSSEOUS STRUCTURES: Osseous structures are demineralized. There is multilevel mild to moderate disc s pace narrowing most prominent L1-L2 and L5-S1 levels. There is multilevel facet arthropathy in the mi d to lower lumbar spine. Moderate axial joint space loss in both hips is present. OTHER: There is moderate to severe vascular calcification of aorta extending into branch vessels. The re is 1.0 cm calcified nodule or injection granuloma posterior right gluteal region axial image 67. A dditional scattered injection granulomas are present in the gluteal region. IMPRESSION: 1. No worrisome solid or cystic renal mass identified with particular attention to the right kidney a t area of ultrasound concern. No renal calculi or hydronephrosis is noted bilaterally.
[2018-12-17 13:05] VITALS: BP 128/63; TEMP 98.4
[2018-12-17 16:15] VITALS: PULSE 75
== END 2018-12-17 17:05 | disposition home health service (06) | DRG 872 ==
LOC: EC 10:45 → 3NMEDONC 13:18
PROVIDERS: ADMIT Hospitalist; ATTEND Hospitalist
DX: A41.51 Sepsis due to Escherichia coli [E. coli] (principal); N39.0 Urinary tract infection, site not specified; F03.90 Unspecified dementia, unspecified severity, without behavioral disturbance, psychotic disturbance, mood disturbance, and anxiety; I10 Essential (primary) hypertension; K21.9 Gastro-esophageal reflux disease without esophagitis; N28.1 Cyst of kidney, acquired; Z79.899 Other long term (current) drug therapy; Z80.0 Family history of malignant neoplasm of digestive organs; Z87.440 Personal history of urinary (tract) infections; Z88.2 Allergy status to sulfonamides; R29.6 Repeated falls; Z91.81 History of falling
CPT/HCPCS: 36415; 71045; 71046; 74178; 76770; 80048; 80053; 81001; 83605; 83735; 84484; 85025; 85610; 85730; 87040; 87086; 93005; 94760; 96365; 96366; 96367; 99285